=== PATIENT | female | born 1965 | race Caucasian/White ===

== ENCOUNTER 2022-12-27 00:21 | Emergency (ER) | payer MEDICAID, SELFPAY ==
[2022-12-27 00:30] VITALS: BP 165/81; PULSE 77; RESP 16; TEMP 37.1; O2SAT 97; BMI 22.2
--- NOTE | 2022-12-27 00:45 | ED_ITS ---
HPI - General Adult General: Chief complaint: General Medical Stated complaint: back pain, lower extremity swelling Time Seen by Provider: 12/27/22 00:23 Source: patient Mode of arrival: EMS Limitations: other (Patient is somewhat unwilling, seems excessively sedated) History of Present Illness: Patient presents to the ER today brought by EMS for evaluation treatment of complaints of acute on chronic back pain, abdominal pains, and bilateral lower extremity swelling. Fortunately, we have no previous history on this patient I am unaware of any previous medical history or active medications. While trying to talk to the patient, she is extremely slow to answer, very somnolent and does not provide much information. From what I gather, she reports all over back pain, vague abdominal pains, and bilateral lower extremity swelling. Patient is curled up in a position underneath her covers. After leaving patient's room, I saw a note indicating that the patient's family had called. She is homeless and they are not able to care for her. Review of Systems General: Reports: 10 or more systems reviewed and unremarkable except in HPI and below GI: Reports: abdominal pain Musc: Reports: back pain Skin/Breast: Reports: skin swelling (BLE) Physical Exam Narrative: EXAM NARRATIVE: patient smells strongly of urine Const: COMMON NORMALS: no acute distress and patient oriented x3 HENMT: COMMON NORMALS: normocephalic, atraumatic and hearing grossly normal bilaterally HEAD & SCALP: normocephalic and atraumatic Eye: COMMON NORMALS: Equal, round and reactive pupils present, EOMs intact bilaterally and conjunctivae normal CONJUNCTIVA: Yes conjunctivae normal PUPIL: Yes Equal, round and reactive pupils present Neck/C-Spine: COMMON NORMALS: full ROM and no JVD Lymph: LYMPHATIC: no lymphadenopathy noted Resp: COMMON NORMALS: normal respiratory effort, No retractions and No use of accessory muscles Cardio: COMMON NORMALS: no JVD and regular rate RATE: regular rate Neuro: COMMON NORMALS: patient oriented x3 Psych: COMMON NORMALS: mental status grossly normal, Normal thought process present, cooperative and normal affect APPEARANCE: Yes unkempt ATTITUDE: Yes Withdrawn affect present ACTIVITY/MOTOR BEHAVIOR: Yes Avoids eye contact (attititude/behavior) SPEECH: Yes minimal, Yes slow and Yes soft THOUGHT PROCESS: Normal thought process present Skin: COMMON NORMALS: no rashes or lesions noted and turgor normal NARRATIVE SKIN EXAM: BLE swelling with mild, 1+ pitting edema bilaterally. Minimal erythema noted to the lower extremities. GENERAL SKIN EXAM: no rashes or lesions noted and turgor normal Course Vital Signs: Vital signs: Vital Signs Temperature 98.7 F 12/27/22 00:30 Pulse Rate 77 12/27/22 00:30 Respiratory Rate 16 12/27/22 00:30 Blood Pressure 165/81 12/27/22 00:30 Pulse Oximetry 97 12/27/22 00:30 Oxygen Delivery Me thod 12/27/22 00:30 MDM - General Adult Medical Decision Making Patient presents to the emergency department today brought by EMS after family members called to have her brought in. There is a social situation here where in the family indicates they are not able to take care of her and had her brought here to be seen for evaluation of chronic abdominal pains, chronic back pain, and bilateral lower extremity edema. Given that we have no previous history on the patient and, patient is very difficult to gather information from, we did pursue an evaluation for the bilateral lower extremity edema. Chest x-ray was read as normal however, I did obtain a BNP which was found to be elevated over 1999. At that time, I did add on a baseline troponin which came back elevated at 127. Patient is EKG reviewed by Dr. Dumont. Patient's lab work is otherwise unremarkable but we were still waiting for urinalysis. I spoke w sophie Dumont who ordered a follow-up troponin. At this time, we are still waiting for completion of her medical evaluation here in the ER. Transition of care to Dr. Dumont at this point for continued interventions, treatment, and monitoring as needed. Differential Diagnosis CHF, lymphedema, venous insufficiency, electrolyte imbalance, kidney dysfunc tion, constipation, UTI, Tim Lab Data 12/27/22 01:16 12/27/22 01:16 Radiology Impressions Chest X-Ray 12/27/22 00:45 IMPRESSION: No acute abnormality demonstrated. Laboratory Results WBC 8.5 10^3/uL (4.0-10.0) 12/27/22 01:16 RBC 4.77 10^6/uL (4.1-5.3) 12/27/22 01:16 Hgb 13.5 g/dL (11.5-15.3) 12/27/22 01:16 Hct 41.2 % (37.0-47.0) 12/27/22 01:16 MCV 86.4 fl (81-99) 12/27/22 01:16 MCH 28.3 pg (28.0-34.0) 12/27/22 01:16 MCHC 32.8 g/dL (30.0-36.0) 12/27/22 01:16 RDW 13.0 % (12.1-15.1) 12/27/22 01:16 Plt Count 311 10^3/cmm (130-400) 12/27/22 01:16 MPV 10.5 fL (7.4-10.4) H 12/27/22 01:16 Neut % (Auto) 66.6 % 12/27/22 01:16 Lymph % (Auto) 18.3 % 12/27/22 01:16 [place] % (Auto) 12.7 % 12/27/22 01:16 Eos % (Auto) 1.5 % 12/27/22 01:16 Baso % (Auto) 0.5 % 12/27/22 01:16 Neut # (Auto) 5.63 10^3/uL (1.8-7.7) 12/27/22 01:16 Lymph # (Auto) 1.6 10^3/uL (0.8-4.8) 12/27/22 01:16 [place] # (Auto) 1.1 10^3/uL (0.2-0.9) H 12/27/22 01:16 Eos # (Auto) 0.1 10^3/uL (0.0-0.8) 12/27/22 01:16 Baso # (Auto) 0.0 10^3/uL (0.0-0.1) 12/27/22 01:16 Nucleated RBC % (auto) 0 % 12/27/22 01:16 Nucleated RBCs # 0.0 /100WBC 12/27/22 01:16 Sodium 139 mmol/L (136-145) 12/27/22 01:16 Potassium 3.3 mmol/L (3.5-5.1) L 12/27/22 01:16 Chloride 101 mmol/L (98-107) 12/27/22 01:16 Carbon Dioxide 27 mmol/L (22-29) 12/27/22 01:16 Anion Gap 14.3 (5-19) 12/27/22 01:16 BUN 8 mg/dL (6-20) 12/27/22 01:16 Creatinine 0.5 mg/dL (0.5-0.9) 12/27/22 01:16 GFR Calculation 126.7 mL/min (90-130) 12/27/22 01:16 Glucose 95 mg/dL (65-115) 12/27/22 01:16 Calculated Osmolality 286 mOsm/kg (285-295) 12/27/22 01:16 Calcium 9.1 mg/dL (8.5-10.5) 12/27/22 01:16 Total Bilirubin 0.9 mg/dL (0.15-1.2) 12/27/22 01:16 AST 19 U/L (0-32) 12/27/22 01:16 ALT 11 U/L (0-33) 12/27/22 01:16 Alkaline Phosphatase 82 U/L (35-105) 12/27/22 01:16 Troponin T Gen 5 ng/L 127 ng/L (0-10) H* 12/27/22 01:16 C-Reactive Protein 71.9 mg/L (0.0-4.9) H 12/27/22 01:16 NT-Pro-B Natriuret Pep 2171 pg/mL (0-125) H 12/27/22 01:16 Total Protein 7.1 g/dL (6.6-8.7) 12/27/22 01:16 Albumin 3.0 g/dL (3.5-5.2) L 12/27/22 01:16 Globulin 4.1 g/dL (1.3-4.6) 12/27/22 01:16 Lipase 42 U/L (13-60) 12/27/22 01:16 Ethyl Alcohol < 10 mg/dL (0-10) 12/27/22 01:16 Discharge Plan Discharge Condition: Stable Referrals: Rob Guajardo MD [Referring] - Coding Level of Care Code ED [employer]
--- NOTE | 2022-12-27 00:45 | XRR_ITS ---
PROCEDURE INFORMATION: Exam: XR Chest Exam date and time: 12/27/2022 1:06 AM Age: 57 years old Clinical indication: Other: Ble swelling; Additional info: Ble edema TECHNIQUE: Imaging protocol: Radiologic exam of the chest. Views: 1 view. COMPARISON: CR XR chest 1V [id number] 02/08/2017 4:44 PM FINDINGS: Lungs: No significant or acute findings. No consolidation. Pleural spaces: No significant costophrenic angle blunting. No pneumothorax. Heart/Mediastinum: Heart size within normal limits given the portable AP technique. Vasculature: Atherosclerotic tortuosity of the thoracic aorta. Bones/joints: No acute osseous abnormality. Other findings: Right posterior oblique rotation of the patient on the radiograph. XR/XR chest 1V [id number] IMPRESSION: No acute abnormality demonstrated.
--- NOTE | 2022-12-27 01:16 | ECG_ITS ---
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 Measurements Intervals [place] Rate: 84 P: 46 NV: 156 QRS: 27 QRSD: 90 T: 20 QT: 438 QTc: 520 Interpretive Statements SINUS RHYTHM WITH OCCASIONAL SUPRAVENTRICULAR PREMATURE COMPLEXES VOLTAGE CRITERIA FOR LVH [MEETS CRITERIA IN ONE OF: R(aVL), S(V1), R(V5), R(V5/V6)+S(V1)] POSSIBLE ANTERIOR MYOCARDIAL INFARCTION , OF INDETERMINATE AGE [30 ms Q WAVE IN V3/V4, OR R < 0.2 mV IN V4] Compared to ECG 02/08/2017 19:40:41 Left ventricular hypertrophy now present Sinus bradycardia no longer present Myocardial infarct finding still present Electronically Signed On 12-27-2022 11:28:45 CDT by Augustin Mondragon M.D. [email or web address]
[2022-12-27 01:25] LABS: Basophils % 0.5 %; Eosinophils # 0.1 10^3/uL (0.0-0.8); Eosinophils % 1.5 %; Hematocrit 41.2 % (37.0-47.0); Hemoglobin 13.5 g/dL (11.5-15.3); Lymphocytes # 1.6 10^3/uL (0.8-4.8); Lymphocytes % 18.3 %; Mean Corpuscular HGB Conc 32.8 g/dL (30.0-36.0); Mean Corpuscular Hemoglobin 28.3 pg (28.0-34.0); Mean Corpuscular Volume 86.4 fl (81-99); Mean Platelet Volume 10.5 fL (7.4-10.4); Monocytes # 1.1 10^3/uL (0.2-0.9); Monocytes % 12.7 %; Neutrophils # 5.63 10^3/uL (1.8-7.7); Neutrophils % 66.6 %; Nucleated Red Blood Cells % 0 %; Platelet Count 311 10^3/cmm (130-400); Red Blood Count 4.77 10^6/uL (4.1-5.3); White Blood Count 8.5 10^3/uL (4.0-10.0)
[2022-12-27 01:57] LABS: Alanine Aminotransferase 11 U/L (0-33); Alkaline Phosphatase 82 U/L (35-105); Anion Gap 14.3 (5-19); Aspartate Amino Transferase 19 U/L (0-32); Blood Urea Nitrogen 8 mg/dL (6-20); C Reactive Protein 71.9 mg/L (0.0-4.9); Calcium 9.1 mg/dL (8.5-10.5); Carbon Dioxide 27 mmol/L (22-29); Chloride 101 mmol/L (98-107); Globulin 4.1 g/dL (1.3-4.6); Glomerular Filtration Rate 126.7 mL/min (90-130); Glucose 95 mg/dL (65-115); Lipase 42 U/L (13-60); NT Pro B Type Natriuretic Pept 2171 pg/mL (0-125); Osmolality Calculated 286 mOsm/kg (285-295); Potassium 3.3 mmol/L (3.5-5.1); Sodium 139 mmol/L (136-145); Total Bilirubin 0.9 mg/dL (0.15-1.2); Total Protein 7.1 g/dL (6.6-8.7)
[2022-12-27 01:58] LABS: Alcohol Level < 10 mg/dL (0-10)
[2022-12-27 03:51] LABS: Troponin T (5th) Once 127 ng/L (0-10)
[2022-12-27] MEDS: amlodipine 10 mg Tablet PO (05:44)
[2022-12-27] MEDS: labetalol 5 mg/mL SDV 20mL 20 MG IVP (05:45)
[2022-12-27] MEDS: nitroglycerin 1 gm/inch oint Pkt 2 INCH TOPICAL (05:45)
[2022-12-27] MEDS: enalaprilat 1.25 mg/mL Inj IVP (05:45)
[2022-12-27 05:55] VITALS: BP 199/91; PULSE 67; RESP 28; O2SAT 96
[2022-12-27 06:24] LABS: Amphetamines Screen Urine Negative (Negative); Barbiturates Screen Urine Negative (Negative); Benzodiazepines Screen Urine Negative (Negative); Cocaine Screen Urine Negative (Negative); Opiate Screen Urine Negative (Negative); PCP Screen Urine Negative (Negative); THC Screen Urine Negative (Negative)
[2022-12-27 06:29] LABS: Troponin T (5th) Once 107 ng/L (0-10)
[2022-12-27 06:30] LABS: Add Urine Microscopic? YES; Bilirubin Urine Neg (Negative); Blood Urine 2+ (Negative); Glucose Urine UA Norm (Normal); Ketones Urine Negative (Negative); Leukocyte Esterase Urine Negative (Negative); Nitrate Urine Negative (Negative); Protein Urine Neg (Negative); Specific Gravity, Urine 1.015 (1.005-1.030); Urine Appearance Clear (CLEAR); Urine Color Yellow (Yellow); Urobilinogen Urine 4 mg/dL (Negative); pH Urine 6 (5-7)
[2022-12-27 06:31] LABS: Add Urine Culture? No; Bacteria Urine TRACE /hpf; Mucus Urine TRACE /hpf; RBC Urine 0-4 /hpf (0-2); WBC Urine 0-4 /hpf (0-5)
[2022-12-27 09:02] VITALS: BP 123/62; PULSE 67; RESP 22; O2SAT 94
== END 2022-12-27 12:48 | disposition home or self-care (01) ==
PROVIDERS: Physician Assistant; Emergency Provider Emergency Medicine
DX: M54.9 Dorsalgia, unspecified (principal); I10 Essential (primary) hypertension; R60.0 Localized edema
CPT/HCPCS: 71045; 80053; 80306; 80307; 81001; 83690; 83880; 84484; 85025; 86140; 93005; 96374; 96375; 99285; J3490

== ENCOUNTER 2022-12-30 13:04 | Emergency (ER) | payer MEDICAID, SELFPAY ==
--- NOTE | 2022-12-30 13:34 | W.ED.PSYCHS ---
HPI - Psych General: Chief Complaint: Psychiatric Symptoms Stated Complaint: MHE Time Seen by Provider: 12/30/22 13:33 History of Present Illness: Ms Alcaraz is a 57-year-old lady presenting to the emergency department for somewhat unclear region. Apparently she was seen on Tuesday and was seeking a place to stay. She does endorse a fall few days ago and left sided chest pain with cough over the past week. She is a poor historian though does appear to have knowledge of recent events. History is otherwise limited by patient. Patient denies suicidal or homicidal ideation. She denies other psychiatric symptoms. Upon further discussion with the patient she reports memory issues have been longstanding from prior strokes. Onset (ago): day(s) Relieving factors: none Exacerbating factors: other Associated psychiatric symptoms: none Review of Systems General: Reports: 10 or more systems reviewed and unremarkable except in HPI and below PFSH ED PFSH: Medical History (Updated 01/07/23 @ 00:01 by FABRICIO Arshad) Congestive heart failure (CHF) Physical Exam Const: COMMON NORMALS: alert GENERAL APPEARANCE: cooperative and well developed HENMT: COMMON NORMALS: normocephalic and atraumatic HEAD & SCALP: normocephalic and atraumatic Eye: COMMON NORMALS: conjunctivae normal CONJUNCTIVA: Yes conjunctivae normal SCLERA: sclerae normal Neck/C-Spine: COMMON NORMALS: supple GENERAL: Yes trachea midline Resp: EFFORT & INSPECTION: Yes able to speak in complete sentences AUSCULTATION: rhonchi and diminished lung sounds Cardio: COMMON NORMALS: regular rate and regular rhythm RATE: regular rate RHYTHM: regular rhythm GI: COMMON NORMALS: Soft to palpation PALPATION: Yes Soft to palpation and No Tenderness to palpation present (GI) Extremity: GENERAL: Yes normal exam except as noted and No edema Neuro: COMMON NORMALS: moves all extremities SENSORIUM/ORIENTATION: Yes alert and No Orientation impaired Psych: COMMON NORMALS: mental status grossly normal and Normal thought process present THOUGHT PROCESS: Normal thought process present Course Vital Signs: Vital signs: Vital Signs Pulse Rate 89 12/30/22 17:13 Respiratory Rate 17 12/30/22 17:13 Blood Pressure 151/81 12/30/22 17:13 Pulse Oximetry 94 12/30/22 17:13 MDM - Psych Medical Decision Making 57-year-old lady presenting to the ER for psychiatric evaluation. Exam as above. Labs with no significant hematologic abnormality. Metabolic panel with mild dehydration. No UTI. Toxic ingestions and UDS are negative. Chest x-ray with no lobar consolidation or pneumothorax. CT head demonstrates prior strokes and moderate small vessel changes. Patient adamantly denies suicidal or homicidal ideation. On reassessment she feels improved. Most likely etiology of patient's symptoms is multifactorial including persistent symptoms from past stroke and COPD exacerbation which can be treated in the outpatient setting. The results of ED evaluation were discussed with the patient including prescriptions and/or symptomatic cares (if applicable) including appropriate and responsible use, followup plan, and return precautions. The patient verbalized understanding and felt safe for discharge. Medical Records I reviewed the patient's medical records. Lab Data I reviewed the patient's lab results. 12/30/22 14:12 12/30/22 14:12 Radiology Impressions Chest X-Ray 12/30/22 13:55 IMPRESSION: 1. Normal chest. Head CT 12/30/22 13:55 IMPRESSION: 1. No evidence of intracranial hemorrhage or mass effect. 2. Moderate small vessel changes with moderate parenchymal volume loss. 3. Chronic lacunar infarcts in the bilateral basal ganglia and alan. 4. Chronic infarcts in the bilateral cerebellum. 5. Vascular calcification. 6. Chronic infarct in the LEFT parietal lobe near the vertex with encephalomalacia. 7. No acute intracranial findings. Laboratory Results WBC 6.6 10^3/uL (4.0-10.0) 12/30/22 14:12 RBC 5.14 10^6/uL (4.1-5.3) 12/30/22 14:12 Hgb 14.4 g/dL (11.5-15.3) 12/30/22 14:12 Hct 45.4 % (37.0-47.0) 12/30/22 14:12 MCV 88.3 fl (81-99) 12/30/22 14:12 MCH 28.0 pg (28.0-34.0) 12/30/22 14:12 MCHC 31.7 g/dL (30.0-36.0) 12/30/22 14:12 RDW 12.9 % (12.1-15.1) 12/30/22 14:12 Plt Count 352 10^3/cmm (130-400) 12/30/22 14:12 MPV 10.2 fL (7.4-10.4) 12/30/22 14:12 Neut % (Auto) 71.7 % 12/30/22 14:12 Lymph % (Auto) 16.6 % 12/30/22 14:12 [place] % (Auto) 9.2 % 12/30/22 14:12 Eos % (Auto) 1.7 % 12/30/22 14:12 Baso % (Auto) 0.6 % 12/30/22 14:12 Neut # (Auto) 4.75 10^3/uL (1.8-7.7) 12/30/22 14:12 Lymph # (Auto) 1.1 10^3/uL (0.8-4.8) 12/30/22 14:12 [place] # (Auto) 0.6 10^3/uL (0.2-0.9) 12/30/22 14:12 Eos # (Auto) 0.1 10^3/uL (0.0-0.8) 12/30/22 14:12 Baso # (Auto) 0.0 10^3/uL (0.0-0.1) 12/30/22 14:12 Nucleated RBC % (auto) 0 % 12/30/22 14:12 Nucleated RBCs # 0.0 /100WBC 12/30/22 14:12 Sodium 132 mmol/L (136-145) L 12/30/22 14:12 Potassium 3.9 mmol/L (3.5-5.1) 12/30/22 14:12 Chloride 94 mmol/L (98-107) L 12/30/22 14:12 Carbon Dioxide 32 mmol/L (22-29) H 12/30/22 14:12 Anion Gap 9.9 (5-19) 12/30/22 14:12 BUN 8 mg/dL (6-20) 12/30/22 14:12 Creatinine 0.6 mg/dL (0.5-0.9) 12/30/22 14:12 GFR Calculation 102.7 mL/min (90-130) 12/30/22 14:12 Glucose 89 mg/dL (65-115) 12/30/22 14:12 Calculated Osmolality 272 mOsm/kg (285-295) L 12/30/22 14:12 Calcium 9.2 mg/dL (8.5-10.5) 12/30/22 14:12 Total Bilirubin 0.5 mg/dL (0.15-1.2) 12/30/22 14:12 AST 21 U/L (0-32) 12/30/22 14:12 ALT 13 U/L (0-33) 12/30/22 14:12 Alkaline Phosphatase 95 U/L (35-105) 12/30/22 14:12 Total Protein 7.7 g/dL (6.6-8.7) 12/30/22 14:12 Albumin 3.4 g/dL (3.5-5.2) L 12/30/22 14:12 Globulin 4.3 g/dL (1.3-4.6) 12/30/22 14:12 TSH 2.98 uIU/mL (0.27-4.20) 12/30/22 14:12 Urine Color Yellow (Yellow) 12/30/22 13:30 Urine Appearance Clear (CLEAR) 12/30/22 13:30 Urine pH 8 (5-7) H 12/30/22 13:30 Ur Specific [place] 1.005 (1.005-1.030) 12/30/22 13:30 Urine Protein Neg (Negative) 12/30/22 13:30 Urine Glucose (UA) Norm (Normal) 12/30/22 13:30 Urine Ketones Negative (Negative) 12/30/22 13:30 Urine Blood 2+ (Negative) H 12/30/22 13:30 Urine Nitrate Negative (Negative) 12/30/22 13:30 Urine Bilirubin Neg (Negative) 12/30/22 13:30 Prot Sulfosalicylic Acd Negative (Negative) 12/30/22 13:30 Urine Urobilinogen Neg mg/dL (Negative) 12/30/22 13:30 Ur Leukocyte Esterase Negative (Negative) 12/30/22 13:30 Urine RBC 0-4 /hpf (0-2) H 12/30/22 13:30 Urine WBC 0-4 /hpf (0-5) H 12/30/22 13:30 Ur Squamous Epith Cells 5-10 /hpf (0-5) H 12/30/22 13:30 Amorphous Sediment Not Reportable 12/30/22 13:30 Urine Bacteria Trace /hpf (NONE) 12/30/22 13:30 Urine Mucus Trace /hpf 12/30/22 13:30 Salicylates < 0.3 mg/dL (3-10) L 12/30/22 14:12 Urine Opiates Screen Negative ng/mL (Negative) 12/30/22 13:30 Acetaminophen < 5.0 ug/mL (10-30) L 12/30/22 14:12 Ur Barbiturates Screen Negative ng/mL (Negative) 12/30/22 13:30 Ur Phencyclidine Scrn Negative ng/mL (Negative) 12/30/22 13:30 Ur Amphetamines Screen Negative ng/mL (Negative) 12/30/22 13:30 U Benzodiazepines Scrn Negative ng/mL (Negative) 12/30/22 13:30 Urine Cocaine Screen Negative ng/mL (Negative) 12/30/22 13:30 U Marijuana (THC) Screen Negative ng/mL (Negative) 12/30/22 13:30 Ethyl Alcohol < 10 mg/dL (0-10) 12/30/22 14:12 Discharge Plan Discharge Patient Disposition: Home Clinical Impression: History of stroke, Acute exacerbation of chronic obstructive pulmonary disease Condition: Stable Prescriptions: New albuterol sulfate 90 mcg/actuation HFA aerosol inhaler 2 inh inhalation Q4H PRN (Reason: shortness of breath or wheezing) Qty: 8.5 0RF No Action furosemide [Lasix] 20 mg tablet 20 mg PO DAILY Qty: 30 0RF potassium chloride 20 mEq tablet extended release 20 meq PO DAILY Qty: 30 0RF lisinopril 2.5 mg tablet 2.5 mg PO DAILY Qty: 30 0RF Discharge Orders: Discharge ED (Routine); Ordered 12/30/22 Ordered By: Ahmet Bhatt Discharge Diet: Usual diet Discharge Activity: Resume usual activity Patient Instructions: COPD (Chronic Obstructive Pulmonary Disease) (ED) Activity Restrictions/Additional Instructions: Thank you for visiting the emergency department. You were seen and evaluated for chest discomfort associated with cough. The most likely cause of this is exacerbation of underlying lung disease. I will prescribe steroids and antibiotics. Please also use your albuterol metered-dose inhaler 2 puffs every 4 hours for 24 hours followed by 2 puffs every 6 hours for 24 hours followed by 2 puffs every 8 hours for 24 hours and then return to the normal schedule. Case management will continue to work on resources. Please follow-up with a primary care provider, establish with a primary care provider if you do not currently have one. Return to the emergency department for anything that you are concerned about and feel needs emergency department evaluation. Coding Level of Care Code ED [employer]
[2022-12-30 13:41] VITALS: BMI 26.6
--- NOTE | 2022-12-30 13:55 | XR_ITS ---
WS: [id number] Exam: XR chest 1V portable [id number] Date/Time of Exam: 12/30/2022 2:04 PM Reason For Exam: cough Comparison 12/27/2022. The lungs are clear and fully expanded. Normal cardiomediastinal silhouette. No pleural effusions. Re gional bony structures are intact. XR/XR chest 1V portable [id number] IMPRESSION: 1. Normal chest.
--- NOTE | 2022-12-30 13:55 | CT_ITS ---
WS: [id number] CT HEAD TECHNIQUE: Noncontrast CT of the head obtained from the skullbase to the vertex. CLINICAL INFORMATION: ams COMPARISON: None. DLP: 984.[address] scans at [facility] use at least one of these dose optimization techniques: automated e xposure control; mA and/or kV adjustment per patient size (includes targeted exams where dose is matc hed to clinical indication); or iterative reconstruction. FINDINGS: No evidence of intracranial hemorrhage or mass effect. Ventricular system and basal cisterns are yates nt. Moderate to advanced small vessel changes with moderate parenchymal volume loss. No extra-axial f luid collections. No evidence of mass or mass effect. Chronic lacunar infarcts in the bilateral basal ganglia and LEFT internal capsule. Chronic lacunar i nfarct in the dorsal alan. Vascular calcification. Paranasal sinuses and mastoid air cells well aerat ed. Chronic infarct in the LEFT parietal lobe at the vertex with encephalomalacia. CT/CT head wo con* [id number] IMPRESSION: 1. No evidence of intracranial hemorrhage or mass effect. 2. Moderate small vessel changes with moderate parenchymal volume loss. 3. Chronic lacunar infarcts in the bilateral basal ganglia and alan. 4. Chronic infarcts in the bilateral cerebellum. 5. Vascular calcification. 6. Chronic infarct in the LEFT parietal lobe near the vertex with encephalomal acia. 7. No acute intracranial findings.
[2022-12-30 14:19] LABS: Amphetamines Screen Urine Negative (Negative); Barbiturates Screen Urine Negative (Negative); Benzodiazepines Screen Urine Negative (Negative); Cocaine Screen Urine Negative (Negative); Opiate Screen Urine Negative (Negative); PCP Screen Urine Negative (Negative); THC Screen Urine Negative (Negative)
[2022-12-30 14:22] LABS: Basophils % 0.6 %; Eosinophils # 0.1 10^3/uL (0.0-0.8); Eosinophils % 1.7 %; Hematocrit 45.4 % (37.0-47.0); Hemoglobin 14.4 g/dL (11.5-15.3); Lymphocytes # 1.1 10^3/uL (0.8-4.8); Lymphocytes % 16.6 %; Mean Corpuscular HGB Conc 31.7 g/dL (30.0-36.0); Mean Corpuscular Volume 88.3 fl (81-99); Mean Platelet Volume 10.2 fL (7.4-10.4); Monocytes # 0.6 10^3/uL (0.2-0.9); Monocytes % 9.2 %; Neutrophils # 4.75 10^3/uL (1.8-7.7); Neutrophils % 71.7 %; Nucleated Red Blood Cells % 0 %; Platelet Count 352 10^3/cmm (130-400); Red Blood Count 5.14 10^6/uL (4.1-5.3); Red Cell Distribution Width 12.9 % (12.1-15.1); White Blood Count 6.6 10^3/uL (4.0-10.0)
[2022-12-30 14:30] LABS: Urine Appearance Clear (CLEAR); Urine Color Yellow (Yellow); pH Urine 8 (5-7)
[2022-12-30 14:31] LABS: Specific Gravity, Urine 1.005 (1.005-1.030)
[2022-12-30 14:32] LABS: Add Urine Microscopic? YES; Bilirubin Urine Neg (Negative); Blood Urine 2+ (Negative); Glucose Urine UA Norm (Normal); Ketones Urine Negative (Negative); Leukocyte Esterase Urine Negative (Negative); Nitrate Urine Negative (Negative); Protein Urine Neg (Negative); Sulfosalicylic Acid Urine Negative (Negative); Urobilinogen Urine Neg (Negative)
[2022-12-30 14:33] LABS: Add Urine Culture? No; Bacteria Urine TRACE /hpf; Mucus Urine TRACE /hpf; RBC Urine 0-4 /hpf (0-2); WBC Urine 0-4 /hpf (0-5)
[2022-12-30 14:54] LABS: Alanine Aminotransferase 13 U/L (0-33); Albumin Level 3.4 g/dL (3.5-5.2); Alkaline Phosphatase 95 U/L (35-105); Anion Gap 9.9 (5-19); Aspartate Amino Transferase 21 U/L (0-32); Blood Urea Nitrogen 8 mg/dL (6-20); Calcium 9.2 mg/dL (8.5-10.5); Carbon Dioxide 32 mmol/L (22-29); Chloride 94 mmol/L (98-107); Globulin 4.3 g/dL (1.3-4.6); Glomerular Filtration Rate 102.7 mL/min (90-130); Glucose 89 mg/dL (65-115); Osmolality Calculated 272 mOsm/kg (285-295); Potassium 3.9 mmol/L (3.5-5.1); Sodium 132 mmol/L (136-145); Thyroid Stimulating Hormone 2.98 uIU/mL (0.27-4.20); Total Bilirubin 0.5 mg/dL (0.15-1.2); Total Protein 7.7 g/dL (6.6-8.7)
[2022-12-30 14:55] LABS: Acetaminophen < 5.0 ug/mL (10-30); Alcohol Level < 10 mg/dL (0-10); Salicylate < 0.3 mg/dL (3-10)
[2022-12-30 17:13] VITALS: BP 151/81; PULSE 89; RESP 17; O2SAT 94
== END 2022-12-30 17:16 | disposition home or self-care (01) ==
PROVIDERS: Emergency Provider Emergency Medicine
DX: J44.1 Chronic obstructive pulmonary disease with (acute) exacerbation (principal); Z86.73 Personal history of transient ischemic attack (TIA), and cerebral infarction without residual deficits; I50.9 Heart failure, unspecified
CPT/HCPCS: 36415; 70450; 71045; 80053; 80306; 80307; 81001; 84443; 85025; 99285

== ENCOUNTER 2025-03-04 17:46 | Inpatient (IN) | payer MEDICAID, SELFPAY ==
[2025-03-04] VITALS (20 sets, daily range): BP systolic 80–149; BP diastolic 41–93; PULSE 81–135; RESP 10–20; O2SAT 94–100
--- NOTE | 2025-03-04 17:53 | XRR_ITS ---
PROCEDURE INFORMATION: Exam: XR Chest Exam date and time: 03/04/2025 6:06 PM Age: 59 years old Clinical indication: Pain; Chest pressure; Additional info: Chest pain TECHNIQUE: Imaging protocol: Radiologic exam of the chest. Views: 1 view. COMPARISON: CR XR chest 1V portable [id number] 12/30/2022 2:07 PM FINDINGS: Lungs: Unremarkable. No consolidation. Pleural spaces: Unremarkable. No pleural effusion. No pneumothorax. Heart/Mediastinum: Unremarkable. No cardiomegaly. Bones/joints: Unremarkable. XR/XR chest 1V portable [id number] IMPRESSION: No acute findings.
--- NOTE | 2025-03-04 17:59 | W.ED.GENADLT ---
Documented by User: Ramirez Abarca DO 03/05/25 06:41 HPI - General Adult General: Chief complaint: Arrhythmia/Palpitations Stated complaint: Chest pain Time Seen by Provider: 03/04/25 17:52 History of Present Illness: 59-year-old female presents to the emergency room complaining of chest discomfort EMS found her to be in A-fib with RVR she is given 150 mg IV push of amiodarone and had improvement however shortly after arriving here began to have an accelerated heart rate again up to 130s and 40s. She is having some mild chest pain with this as well. She states she has not had any A-fib in the past no history of coronary artery disease. There is a diagnosis a few years ago of congestive heart failure. Associated symptoms: Reports chest pain and palpitations; Deny dyspnea or rash Related Data Previous Rx's ?Medication ?Instructions ?Recorded furosemide 20 mg tablet (Lasix) 20 mg PO DAILY #30 tabs 12/27/22 lisinopril 2.5 mg tablet 2.5 mg PO DAILY #30 tabs 12/27/22 potassium chloride 20 mEq 20 meq PO DAILY #30 tabs 12/27/22 tablet,extended release albuterol sulfate 90 mcg/actuation 2 inh inhalation Q4H PRN shortness 12/30/22 aerosol inhaler of breath or wheezing #8.5 grams Allergies Allergy/AdvReac Type Severity Reaction Status Date / Time Penicillins Allergy Unknown Verified 12/30/22 13:34 Review of Systems Const: Denies: fever(s) or chills Card: Reports: chest pain, palpitations and irregular heart rhythm Resp: Denies: dyspnea GI: Denies: abdominal pain : Denies: dysuria, urinary frequency or urinary urgency Musc: Denies: neck pain or back pain Skin/Breast: Denies: rash PFSH ED PFSH: Medical History (Updated 03/04/25 @ 21:13 by Eze Bose MD) Congestive heart failure (CHF) Physical Exam Const: GENERAL APPEARANCE: cooperative ORIENTATION/CONSCIOUSNESS: Yes awake, Yes oriented to person, Yes oriented to place and Yes oriented to time HENMT: COMMON NORMALS: normocephalic, atraumatic and hearing grossly normal bilaterally HEAD & SCALP: normocephalic and atraumatic Resp: COMMON NORMALS: normal respiratory effort, No retractions, No use of accessory muscles and clear to auscultation bilaterally AUSCULTATION: clear to auscultation bilaterally Cardio: COMMON NORMALS: No murmurs present (Cardio) RATE: tachycardic RHYTHM: abnormal rhythm irregularly irregular GI: COMMON NORMALS: Soft to palpation and No hepatosplenomegaly present AUSCULTATION: Yes normoactive bowel sounds PALPATION: Yes Soft to palpation, No Tenderness to palpation present (GI), No Guarding due to palpation present (GI) and Yes No hepatosplenomegaly present Extremity: COMMON NORMALS: normal to inspection, capillary refill normal, no clubbing, cyanosis or edema, no calf tenderness and no pedal edema Neuro: SENSORIUM/ORIENTATION: Yes oriented to person, Yes oriented to place and Yes oriented to time Skin: COMMON NORMALS: no rashes or lesions noted GENERAL SKIN EXAM: no rashes or lesions noted Course Vital Signs: Vital signs: Vital Signs Pulse Rate 107 H 03/05/25 05:00 Respiratory Rate 14 03/05/25 06:26 Blood Pressure 163/83 03/05/25 05:00 Pulse Oximetry 100 03/05/25 05:00 Oxygen Delivery Me thod Nasal Cannula 03/04/25 23:01 [facility] - General Adult Medical Decision Making Care signed out to Dr. Bose at change of shift. See final notes for diagnosis and disposition. Lab Data 03/05/25 03:07 03/05/25 03:07 Radiology Impressions Chest X-Ray 03/04/25 17:53 IMPRESSION: No acute findings. Head CT 03/04/25 20:00 IMPRESSION: No acute intracranial findings. Laboratory Results WBC 9.49 10^3/uL (3.29-11.43) 03/04/25 16:00 RBC 5.51 10^6/uL (3.85-5.65) 03/04/25 16:00 Hgb 14.70 g/dL (11.27-16.99) 03/04/25 16:00 Hct 44.9 % (36-47) 03/04/25 16:00 MCV 81.5 fl (85-98) L 03/04/25 16:00 MCH 26.7 pg (27-33) L 03/04/25 16:00 MCHC 32.7 g/dL (30-55) 03/04/25 16:00 RDW 13.9 % (12.1-15.1) 03/04/25 16:00 Plt Count 248 10^3/cmm (157-399) 03/04/25 16:00 MPV 11.7 fL (7.4-10.4) H 03/04/25 16:00 Neut % (Auto) 56.9 % 03/04/25 16:00 Lymph % (Auto) 31.2 % 03/04/25 16:00 Wise % (Auto) 10.3 % 03/04/25 16:00 Eos % (Auto) 0.9 % 03/04/25 16:00 Baso % (Auto) 0.5 % 03/04/25 16:00 Neut # (Auto) 5.39 10^3/uL (1.8-7.7) 03/04/25 16:00 Lymph # (Auto) 3.0 10^3/uL (0.8-4.8) 03/04/25 16:00 Wise # (Auto) 1.0 10^3/uL (0.2-0.9) H 03/04/25 16:00 Eos # (Auto) 0.1 10^3/uL (0.0-0.8) 03/04/25 16:00 Baso # (Auto) 0.1 10^3/uL (0.0-0.1) 03/04/25 16:00 Nucleated RBC % (auto) 0 % 03/04/25 16:00 Nucleated RBCs # 0.0 /100WBC 03/04/25 16:00 PT 18.20 SECONDS (12.1-14.9) H 03/04/25 19:31 INR 1.41 (0.8-1.2) H 03/04/25 19:31 APTT 37.1 SECONDS (23.9-36.7) H 03/04/25 19:31 Sodium 139 mmol/L (136-145) 03/04/25 16:00 Potassium 4.3 mmol/L (3.5-5.1) 03/04/25 16:00 Chloride 104 mmol/L (98-107) 03/04/25 16:00 Carbon Dioxide 19 mmol/L (22-29) L 03/04/25 16:00 Anion Gap 20.3 (5-19) H 03/04/25 16:00 BUN 12 mg/dL (8-23) 03/04/25 16:00 Creatinine 0.7 mg/dL (0.5-0.9) 03/04/25 16:00 GFR Calculation 85.4 mL/min (90-130) L 03/04/25 16:00 Glucose 106 mg/dL (65-115) 03/04/25 16:00 Calculated Osmolality 288 mOsm/kg (285-295) 03/04/25 16:00 Calcium 9.6 mg/dL (8.5-10.5) 03/04/25 16:00 Total Bilirubin 1.8 mg/dL (0.15-1.2) H 03/04/25 16:00 AST 33 U/L (0-32) H 03/04/25 16:00 ALT 25 U/L (0-33) 03/04/25 16:00 Alkaline Phosphatase 139 U/L (35-105) H 03/04/25 16:00 Troponin T Baseline 8 ng/L (0-10) 03/04/25 16:00 Troponin T 120 Minute 10.58 ng/L (0-10) H 03/04/25 19:31 Delta Troponin T 2.58 ABS# (0-10) 03/04/25 19:31 NT-Pro-B Natriuret Pep 1637 pg/mL (0-125) H 03/04/25 16:00 Total Protein 8.2 g/dL (6.6-8.7) 03/04/25 16:00 Albumin 4.0 g/dL (3.5-5.2) 03/04/25 16:00 Globulin 4.2 g/dL (1.3-4.6) 03/04/25 16:00 Urine Color [place] (Yellow) A 03/04/25 18:30 Urine Appearance Cloudy (CLEAR) A 03/04/25 18:30 Urine pH 5.5 (5-7) 03/04/25 18:30 Ur Specific [place] 1.020 (1.005-1.030) 03/04/25 18:30 Urine Protein 2+ (Negative) A 03/04/25 18:30 Urine Glucose (UA) Negative (Normal) 03/04/25 18:30 Urine Ketones Trace (Negative) 03/04/25 18:30 Urine Blood 3+ (Negative) A 03/04/25 18:30 Urine Nitrate Negative (Negative) 03/04/25 18:30 Urine Bilirubin 1+ (Negative) H 03/04/25 18:30 Urine Urobilinogen 1.0 mg/dL (Negative) 03/04/25 18:30 Ur Leukocyte Esterase 3+ (Negative) A 03/04/25 18:30 Urine RBC 51-100 /hpf (0-2) H 03/04/25 18:30 Urine WBC >100 /hpf (0-5) H 03/04/25 18:30 Ur Squamous Epith Cells 11-20 /hpf (0-5) H 03/04/25 18:30 Amorphous Sediment Not Reportable 03/04/25 18:30 Urine Bacteria 4+ /hpf (NONE) H 03/04/25 18:30 Hyaline Casts 6.61 /lpf 03/04/25 18:30 EKG Data EKG 1: Computer generated interpretation: Chest X-Ray 03/04/25 17:53 IMPRESSION: No acute findings. Head CT 03/04/25 20:00 IMPRESSION: No acute intracranial findings. EKG 2: Computer generated interpretation: Chest X-Ray 03/04/25 17:53 IMPRESSION: No acute findings. Head CT 03/04/25 20:00 IMPRESSION: No acute intracranial findings. Discharge Plan Discharge Patient Disposition: Admitted As Inpatient Admit Provider: Bri Gunn Clinical Impression: Atrial fibrillation with RVR, UTI (urinary tract infection) Condition: Stable Coding Level of Care Code ED Risk Assessment Consultant for Chg Fwd Documented by User: Eze Bose MD 03/04/25 21:23 HPI - General Adult General: Chief complaint: Arrhythmia/Palpitations Stated complaint: Chest pain Time Seen by Provider: 03/04/25 17:52 Related Data Previous Rx's ?Medication ?Instructions ?Recorded furosemide 20 mg tablet (Lasix) 20 mg PO DAILY #30 tabs 12/27/22 lisinopril 2.5 mg tablet 2.5 mg PO DAILY #30 tabs 12/27/22 potassium chloride 20 mEq 20 meq PO DAILY #30 tabs 12/27/22 tablet,extended release albuterol sulfate 90 mcg/actuation 2 inh inhalation Q4H PRN shortness 12/30/22 aerosol inhaler of breath or wheezing #8.5 grams Allergies Allergy/AdvReac Type Severity Reaction Status Date / Time Penicillins Allergy Unknown Verified 12/30/22 13:34 [facility] ED PFSH: Medical History (Updated 03/04/25 @ 21:13 by Eze Bose MD) Congestive heart failure (CHF) Course Vital Signs: Vital signs: Vital Signs Pulse Rate 107 H 03/05/25 05:00 Respiratory Rate 14 03/05/25 06:26 Blood Pressure 163/83 03/05/25 05:00 Pulse Oximetry 100 03/05/25 05:00 Oxygen Delivery Me thod Nasal Cannula 03/04/25 23:01 MDM - General Adult Medical Decision Making Care signed out to Dr. Bose at change of shift. See final notes for diagnosis and disposition. In summary, patient is a generally well-appearing 59-year-old female who came to the emergency department via EMS for chest pain. En route, EMS found her to have elevated heart rate and atrial fibrillation for which they gave her an amiodarone bolus. Chest pain was relieved with rate control. She was switched to Cardizem boluses while here in the emergency department. She received 2 L of normal saline in total. Troponin is not elevated. Urinalysis is not worrisome for infection. She exhibits some confusion and pulled out her IVs thus CT brain was performed. She was given ceftriaxone for suspected UTI and cultures were sent. She will be admitted to the hospitalist service for further observation and care and consideration for anticoagulation and rate control And further evaluation of the etiology of the atrial fibrillation Lab Data 03/05/25 03:07 03/05/25 03:07 Radiology Impressions Chest X-Ray 03/04/25 17:53 IMPRESSION: No acute findings. Head CT 03/04/25 20:00 IMPRESSION: No acute intracranial findings. Laboratory Results WBC 9.49 10^3/uL (3.29-11.43) 03/04/25 16:00 RBC 5.51 10^6/uL (3.85-5.65) 03/04/25 16:00 Hgb 14.70 g/dL (11.27-16.99) 03/04/25 16:00 Hct 44.9 % (36-47) 03/04/25 16:00 MCV 81.5 fl (85-98) L 03/04/25 16:00 MCH 26.7 pg (27-33) L 03/04/25 16:00 MCHC 32.7 g/dL (30-55) 03/04/25 16:00 RDW 13.9 % (12.1-15.1) 03/04/25 16:00 Plt Count 248 10^3/cmm (157-399) 03/04/25 16:00 MPV 11.7 fL (7.4-10.4) H 03/04/25 16:00 Neut % (Auto) 56.9 % 03/04/25 16:00 Lymph % (Auto) 31.2 % 03/04/25 16:00 Wise % (Auto) 10.3 % 03/04/25 16:00 Eos % (Auto) 0.9 % 03/04/25 16:00 Baso % (Auto) 0.5 % 03/04/25 16:00 Neut # (Auto) 5.39 10^3/uL (1.8-7.7) 03/04/25 16:00 Lymph # (Auto) 3.0 10^3/uL (0.8-4.8) 03/04/25 16:00 Wise # (Auto) 1.0 10^3/uL (0.2-0.9) H 03/04/25 16:00 Eos # (Auto) 0.1 10^3/uL (0.0-0.8) 03/04/25 16:00 Baso # (Auto) 0.1 10^3/uL (0.0-0.1) 03/04/25 16:00 Nucleated RBC % (auto) 0 % 03/04/25 16:00 Nucleated RBCs # 0.0 /100WBC 03/04/25 16:00 PT 18.20 SECONDS (12.1-14.9) H 03/04/25 19:31 INR 1.41 (0.8-1.2) H 03/04/25 19:31 APTT 37.1 SECONDS (23.9-36.7) H 03/04/25 19:31 Sodium 139 mmol/L (136-145) 03/04/25 16:00 Potassium 4.3 mmol/L (3.5-5.1) 03/04/25 16:00 Chloride 104 mmol/L (98-107) 03/04/25 16:00 Carbon Dioxide 19 mmol/L (22-29) L 03/04/25 16:00 Anion Gap 20.3 (5-19) H 03/04/25 16:00 BUN 12 mg/dL (8-23) 03/04/25 16:00 Creatinine 0.7 mg/dL (0.5-0.9) 03/04/25 16:00 GFR Calculation 85.4 mL/min (90-130) L 03/04/25 16:00 Glucose 106 mg/dL (65-115) 03/04/25 16:00 Calculated Osmolality 288 mOsm/kg (285-295) 03/04/25 16:00 Calcium 9.6 mg/dL (8.5-10.5) 03/04/25 16:00 Total Bilirubin 1.8 mg/dL (0.15-1.2) H 03/04/25 16:00 AST 33 U/L (0-32) H 03/04/25 16:00 ALT 25 U/L (0-33) 03/04/25 16:00 Alkaline Phosphatase 139 U/L (35-105) H 03/04/25 16:00 Troponin T Baseline 8 ng/L (0-10) 03/04/25 16:00 Troponin T 120 Minute 10.58 ng/L (0-10) H 03/04/25 19:31 Delta Troponin T 2.58 ABS# (0-10) 03/04/25 19:31 NT-Pro-B Natriuret Pep 1637 pg/mL (0-125) H 03/04/25 16:00 Total Protein 8.2 g/dL (6.6-8.7) 03/04/25 16:00 Albumin 4.0 g/dL (3.5-5.2) 03/04/25 16:00 Globulin 4.2 g/dL (1.3-4.6) 03/04/25 16:00 Urine Color [place] (Yellow) A 03/04/25 18:30 Urine Appearance Cloudy (CLEAR) A 03/04/25 18:30 Urine pH 5.5 (5-7) 03/04/25 18:30 Ur Specific [place] 1.020 (1.005-1.030) 03/04/25 18:30 Urine Protein 2+ (Negative) A 03/04/25 18:30 Urine Glucose (UA) Negative (Normal) 03/04/25 18:30 Urine Ketones Trace (Negative) 03/04/25 18: Urine Blood 3+ (Negative) A 03/04/25 18:30 Urine Nitrate Negative (Negative) 03/04/25 18:30 Urine Bilirubin 1+ (Negative) H 03/04/25 18: Urine Urobilinogen 1.0 mg/dL (Negative) 03/04/25 18:30 Ur Leukocyte Esterase 3+ (Negative) A 03/04/25 18:30 Urine RBC 51-100 /hpf (0-2) H 03/04/25 18:30 Urine WBC >100 /hpf (0-5) H 03/04/25 18:30 Ur Squamous Epith Cells 11-20 /hpf (0-5) H 03/04/25 18:30 Amorphous Sediment Not Reportable 03/04/25 18:30 Urine Bacteria 4+ /hpf (NONE) H 03/04/25 18:30 Hyaline Casts 6.61 /lpf 03/04/25 18:30 All radiology interpretation(s) finalized by discharge EKG Data EKG 1: Interpretation: Time?1800?atrial fibrillation with RVR, rate of 133, no ST segment elevation or depression, no T wave inversions, intervals within normal limits. QTc = 398. Computer generated interpretation: Chest X-Ray 03/04/25 17:53 IMPRESSION: No acute findings. Head CT 03/04/25 20:00 IMPRESSION: No acute intracranial findings. EKG 2: Interpretation: Time?2022?atrial fibrillation with RVR, rate of 118, no ST segment elevation or depression, no T wave inversions, QTc = 439 Computer generated interpretation: Chest X-Ray 03/04/25 17:53 IMPRESSION: No acute findings. Head CT 03/04/25 20:00 IMPRESSION: No acute intracranial findings. Discharge Plan Discharge Patient Disposition: Admitted As Inpatient Admit Provider: Velia,Patience C Clinical Impression: Atrial fibrillation with RVR, UTI (urinary tract infection) Condition: Stable Coding Level of Care Code ED Risk Assessment Consultant for Denise Verduzco
--- NOTE | 2025-03-04 18:00 | ECG_ITS ---
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 Measurements Intervals [place] Rate: 133 P: 0 [place]: 0 QRS: 33 QRSD: 76 T: 61 QT: 320 QTc: 476 Interpretive Statements ATRIAL FIBRILLATION WITH RAPID VENTRICULAR RESPONSE SEPTAL MYOCARDIAL INFARCTION , OF INDETERMINATE AGE [40+ ms Q WAVE IN V1/V2] Compared to ECG 12/27/2022 01:16:30 Sinus rhythm no longer present Left ventricular hypertrophy no longer present Myocardial infarct finding still present Electronically Signed On 03-05-2025 11:35:48 CDT by Augustin Mondragon M.D. [email or web address] [id number]
[2025-03-04] MEDS: aspirin 81 mg Chew Tablet 324 MG PO (18:19)
[2025-03-04] MEDS: acetaminophen 325 mg Tablet 650 MG PO (18:35)
[2025-03-04 18:53] LABS: Basophils # 0.1 10^3/uL (0.0-0.1); Basophils % 0.5 %; Eosinophils # 0.1 10^3/uL (0.0-0.8); Eosinophils % 0.9 %; Hematocrit 44.9 % (36-47); Lymphocytes % 31.2 %; Mean Corpuscular HGB Conc 32.7 g/dL (30-55); Mean Corpuscular Hemoglobin 26.7 pg (27-33); Mean Corpuscular Volume 81.5 fl (85-98); Mean Platelet Volume 11.7 fL (7.4-10.4); Monocytes % 10.3 %; Neutrophils # 5.39 10^3/uL (1.8-7.7); Neutrophils % 56.9 %; Nucleated Red Blood Cells % 0 %; Platelet Count 248 10^3/cmm (157-399); Red Blood Count 5.51 10^6/uL (3.85-5.65); Red Cell Distribution Width 13.9 % (12.1-15.1); White Blood Count 9.49 10^3/uL (3.29-11.43)
[2025-03-04 19:08] LABS: Troponin(5th) Baseline 8 ng/L (0-10)
[2025-03-04 19:10] LABS: Bilirubin Urine 1+ (Negative); Blood Urine 3+ (Negative); Glucose Urine UA Negative (Normal); Ketones Urine Trace (Negative); Leukocyte Esterase Urine 3+ (Negative); Nitrate Urine Negative (Negative); Protein Urine 2+ (Negative); Urine Appearance Cloudy (CLEAR); pH Urine 5.5 (5-7)
[2025-03-04 19:15] LABS: Add Urine Microscopic? YES; Bacteria Urine 4+ /hpf; Hyaline Casts Urine 6.61 /lpf; RBC Urine 51-100 /hpf (0-2); WBC Urine >100 /hpf (0-5)
[2025-03-04 19:17] LABS: Alanine Aminotransferase 25 U/L (0-33); Alkaline Phosphatase 139 U/L (35-105); Blood Urea Nitrogen 12 mg/dL (8-23); Calcium 9.6 mg/dL (8.5-10.5); Carbon Dioxide 19 mmol/L (22-29); Chloride 104 mmol/L (98-107); Creatinine Clr Calc Pharmacy 87.0756; Globulin 4.2 g/dL (1.3-4.6); Glomerular Filtration Rate 85.4 mL/min (90-130); Glucose 106 mg/dL (65-115); NT Pro B Type Natriuretic Pept 1637 pg/mL (0-125); Osmolality Calculated 288 mOsm/kg (285-295); Sodium 139 mmol/L (136-145); Total Bilirubin 1.8 mg/dL (0.15-1.2); Total Protein 8.2 g/dL (6.6-8.7)
[2025-03-04 19:21] LABS: Anion Gap 20.3 (5-19); Aspartate Amino Transferase 33 U/L (0-32); Potassium 4.3 mmol/L (3.5-5.1)
[2025-03-04 19:30] LABS: Urine Color Orange (Yellow)
[2025-03-04 19:31] LABS: UA Slide Review UA Slide Review Perf
[2025-03-04 19:32] LABS: Add Urine Culture? Yes
[2025-03-04 19:57] LABS: INR 1.41 (0.8-1.2)
[2025-03-04 19:59] LABS: Partial Thromboplastin Time 37.1 SECONDS (23.9-36.7)
--- NOTE | 2025-03-04 20:00 | CTR_ITS ---
PROCEDURE INFORMATION: Exam: CT Head Without Contrast Exam date and time: 03/04/2025 8:12 PM Age: 59 years old Clinical indication: Altered mental status/memory loss; Confusion or disorientation TECHNIQUE: Imaging protocol: Computed tomography of the head without contrast. Radiation optimization: All CT scans at this facility use at least one of these dose optimization techniques: automated exposure control; mA and/or kV adjustment per patient size (includes targeted exams where dose is matched to clinical indication); or iterative reconstruction. COMPARISON: CT head wo con* [id number] 12/30/2022 2:51 PM RADIATION DOSE METRICS: Total DLP (mGy-cm): 1065.54 FINDINGS: Brain: Heavy intracranial calcified atherosclerotic disease. Bilateral lacunar basilar infarcts, stable from prior comparisons. Diffuse cerebral atrophy. Stable cerebellar infarcts. Stable appearing pontine infarct. Stable encephalomalacia of the bilateral cerebral vertices. Stable appearing periventricular and subcortical white matter hypoattenuation. Cerebral ventricles: No ventriculomegaly. Paranasal sinuses: Visualized sinuses are unremarkable. No fluid levels. Mastoid air cells: Visualized mastoid air cells are well aerated. Bones: Ex vacuo dilation of the cerebral spinal fluid spaces. Soft tissues: Unremarkable. CT/CT head wo con* [id number] IMPRESSION: No acute intracranial findings.
[2025-03-04 20:02] LABS: Troponin 5 2HR 10.58 ng/L (0-10); Troponin 5 2HR Delta 2.58 ABS# (0-10)
[2025-03-04] MEDS: cefTRIAXone 2,000 mg SDV 2000 MG IVP (20:20)
[2025-03-04] MEDS: sodium chloride 0.9% 1,000 ML 999 ML IV ×2 (20:21→22:08)
[2025-03-04] MEDS: LORazepam 1 MG/0.5 ML injection IVP (20:21)
--- NOTE | 2025-03-04 20:23 | ECG_ITS ---
[employer] Test Date: 2025-03-04 Pat Name: Natalie Alcaraz Department: Room: Gender: Female Anchorer: : 1965 Requested By: Ramirez Trotter Order Number: [id number] Reading MD: AMADO GARCIA Measurements Intervals [place] Rate: 118 P: 0 [place]: 0 QRS: 52 QRSD: 86 T: 72 QT: 369 QTc: 518 Interpretive Statements ATRIAL FIBRILLATION WITH RAPID VENTRICULAR RESPONSE SEPTAL MYOCARDIAL INFARCTION , OF INDETERMINATE AGE [40+ ms Q WAVE IN V1/V2] Compared to ECG 03/04/2025 18:00:43 No significant changes Electronically Signed On 03-06-2025 23:05:57 CDT by AMADO GARCIA [email or web address]
[2025-03-04] MEDS: dilTIAZem 5 mg/mL SDV 5 mL IVP (22:13)
[2025-03-04 23:07] LABS: Troponin 5 6HR 8.92 ng/L (0-10); Troponin 5 6HR Delta 0.92 ng/L (0-12)
[2025-03-04 23:10] LABS: Lactic Sepsis W/Reflex 0.9 mmol/L (0.5-2.2)
--- NOTE | 2025-03-04 23:53 | ECG_ITS ---
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
[2025-03-05] VITALS (78 sets, daily range): BP systolic 84–163; BP diastolic 53–113; PULSE 54–153; RESP 13–26; TEMP 36.7–36.8; O2SAT 94–100
[2025-03-05] MEDS: sodium chloride 0.9% 1,000 ML 75 ML IV (02:36)
[2025-03-05 03:53] LABS: Basophils % 0.7 %; Eosinophils # 0.1 10^3/uL (0.0-0.8); Eosinophils % 2.9 %; Hematocrit 40.6 % (36-47); Lymphocytes # 1.7 10^3/uL (0.8-4.8); Lymphocytes % 38.9 %; Mean Corpuscular HGB Conc 30.3 g/dL (30-55); Mean Corpuscular Hemoglobin 26.2 pg (27-33); Mean Corpuscular Volume 86.4 fl (85-98); Mean Platelet Volume 11.6 fL (7.4-10.4); Monocytes # 0.6 10^3/uL (0.2-0.9); Monocytes % 13.8 %; Neutrophils # 1.92 10^3/uL (1.8-7.7); Neutrophils % 43.5 %; Nucleated Red Blood Cells % 0 %; Platelet Count 148 10^3/cmm (157-399); Red Cell Distribution Width 14.2 % (12.1-15.1); White Blood Count 4.42 10^3/uL (3.29-11.43)
[2025-03-05 04:27] LABS: Alanine Aminotransferase 16 U/L (0-33); Alkaline Phosphatase 103 U/L (35-105); Anion Gap 13.8 (5-19); Aspartate Amino Transferase 23 U/L (0-32); Blood Urea Nitrogen 12 mg/dL (8-23); Calcium 8.2 mg/dL (8.5-10.5); Carbon Dioxide 22 mmol/L (22-29); Chloride 110 mmol/L (98-107); Creatinine Clr Calc Pharmacy 87.0756; Globulin 3.4 g/dL (1.3-4.6); Glomerular Filtration Rate 85.4 mL/min (90-130); Glucose 89 mg/dL (65-115); Osmolality Calculated 293 mOsm/kg (285-295); Potassium 3.8 mmol/L (3.5-5.1); Sodium 142 mmol/L (136-145); Total Protein 6.4 g/dL (6.6-8.7)
[2025-03-05] MEDS: heparin 5,000 unit/mL INJ 1 mL 5000 UNIT SUBCUT (06:23)
[2025-03-05] MEDS: morphine 4 mg/mL SDV 1 mL 2 MG IVP ×2 (06:26→11:22)
[2025-03-05] MEDS: docusate sodium 100 mg Capsule PO ×2 (08:11→17:48)
[2025-03-05] MEDS: pantoprazole DR 40 mg Tablet PO (08:11)
--- NOTE | 2025-03-05 08:52 | PC.PHAR ---
[facility] is faxing current med list 03/05/25 8:52am
--- NOTE | 2025-03-05 09:11 | PC.PHAR ---
Addendum entered by Rosalee Maurer 03/05/25 09:30: [facility] states pt has been on leave of absence from facility for 2 days and they do not know if pt has been taking her current medications. They believe it is the reason she is admitted. Original Note: Pt is in [facility] Asael DIAZ [phone]
[2025-03-05] MEDS: azithromycin 250 mg Tablet 500 MG PO (11:20)
[2025-03-05] MEDS: metoprolol tartrate 25 mg Tablet 12.5 MG PO (11:21)
[2025-03-05] MEDS: methylPREDNISolone sod succ 40 mg/mL INJ IVP ×2 (11:21→23:51)
--- NOTE | 2025-03-05 11:29 | PM.HP ---
Providers/Chief Complaint Admitting Physician: Bri Gunn MD--- patient was admitted before 12 midnight Chief Complaint: Chest pain, atrial fibrillation with RVR History of Present Illness Natalie Alcaraz is a 59 year old female with medical history significant for atrial fibrillation patient is on Eliquis. When asked on admission patient related that this is the first time she ever came in with atrial fibrillation. Patient was brought into the emergency room because of confusion she related that she was very tired very sleepy and had to sleep for 2 days not getting out of bed got weak on that and that is when she told her family to bring her to the emergency room for evaluation. It was noted that the blood pressure was fairly okay but the heart rates was in the 130s. When the EMS got to the home they started her on amiodarone which quickly brought the heart rate back to 80s. Upon arriving to the emergency room the emergency room attending stopped the amiodarone and gave her 5 mg IV bolus of Cardizem and 1 L of fluid. She did okay for a bit and the stat going up again in the 120s patient was dry I gave a liter of fluid and another bolus of Cardizem patient stayed in A-fib but quite rate control for throughout the shift. She was she get into A-fib RVR then it drip may be necessary. Just as remained the patient was in new onset cardiology Dr. Braga was consulted and I spoke to Dr. Braga regarding this patient and he is going to be seeing the patient. I think patient is asked the patient is triggered by the underlining urinary tract infection at this time. Patient is on high dose of ceftriaxone 2 g once daily and had received 1 yesterday and 1 today to continue. Review of Systems Narrative: System review open 10 organ review significant for cardiovascular process with atrial fibrillation with RVR and also system with infection. Medications/Allergies Home Medications ?Medication ?Instructions ?Recorded ?Confirmed ?Last Taken ?Type lisinopril 2.5 mg tablet 2.5 mg PO DAILY #30 tabs 12/27/22 03/05/25 Unknown Rx albuterol sulfate 90 mcg/actuation 2 inh inhalation Q4H PRN shortness 12/30/22 03/05/25 Unknown Rx aerosol inhaler of breath or wheezing #8.5 grams acetaminophen 650 mg 650 mg PO Q8H PRN Pain 03/05/25 03/05/25 Unknown History tablet,extended release albuterol sulfate 1.25 mg/3 mL 1.25 mg inhalation QID PRN 03/05/25 03/05/25 Unknown History solution for nebulization Shortness Of Breath apixaban 5 mg tablet (Eliquis) 5 mg PO BID 03/05/25 03/05/25 Unknown History aspirin 81 mg chewable tablet 81 mg PO DAILY 03/05/25 03/05/25 Unknown History atorvastatin 80 mg tablet 80 mg PO DAILY 03/05/25 03/05/25 Unknown History bisacodyl 10 mg rectal suppository 10 mg OR DAILY PRN Constipation 03/05/25 03/05/25 Unknown History (Dulcolax (bisacodyl)) guaifenesin 100 mg/5 mL oral liquid 200 mg PO Q6H PRN cougn/congestion 03/05/25 03/05/25 Unknown History magnesium hydroxide 400 mg/5 mL 30 ml PO DAILY PRN Constipation 03/05/25 03/05/25 Unknown History oral suspension (Milk of Magnesia) memantine 5 mg tablet 5 mg PO DAILY 03/05/25 03/05/25 Unknown History metoprolol tartrate 25 mg tablet 25 mg PO BID 03/05/25 03/05/25 Unknown History nystatin 100,000 unit/gram topical See Rx Instructions .Route .COMPLEX 03/05/25 03/05/25 Unknown History powder (Nyamyc) oxybutynin chloride 5 mg tablet 5 mg PO BID 03/05/25 03/05/25 Unknown History pantoprazole 40 mg tablet,delayed 40 mg PO DAILY 03/05/25 03/05/25 Unknown History release sodium phosphates 19 gram-7 118 ml OR DAILY PRN Constipation 03/05/25 03/05/25 Unknown History gram/118 mL enema (Fleet Enema) tramadol 50 mg tablet 50 mg PO Q8H PRN Pain 03/05/25 03/05/25 Unknown History Allergies Allergy/AdvReac Type Severity Reaction Status Date / Time Penicillins Allergy Unknown Verified 12/30/22 13:34 PFSH Acute PFSH: Medical History (Updated 03/04/25 @ 21:13 by Eze Bose MD) Congestive heart failure (CHF) Vitals/I&O/Wt Last Vital Signs Temp 98.1 F 03/05/25 08:15 Pulse 132 H 03/05/25 11:18 Resp 18 03/05/25 11:18 BP 142/78 03/05/25 08:45 Pulse Ox 99 03/05/25 11:18 O2 Del Method Nasal Cannula 03/05/25 11:18 O2 Flow Rate 2 03/05/25 11:18 03/04/25 03/05/25 03/05/25 22:59 06:59 14:59 Intake Total 1046.106 / 5224.987 3866 / 1000 Output Total Balance 1046.106 / 1046.106 -10 / 2619.148 1984 / 1000 Weight last 48 hrs Weight 82 kg Weight 68.946 kg Physical Exam Narrative: Patient is doing fairly well and responded to treatment confusion is clearing since she was given Ativan for agitation earlier part of this morning. This affects in a way of sedation. Patient is able to respond and verbalizes when asked questions HEENT normocephalic/atraumatic neck neck is supple cardiovascular heart is regular lungs are pretty much clear abdomen soft nontender nondistended unremarkable extremities are intact no edema has good pulses neurology has no focality lab studies lab studies reviewed and noted. Data 03/05/25 03:07 03/05/25 03:07 Micro: Microbiology 03/04/25 18:30 Urine Culture - Preliminary Urine,Clean Catch Gram Negative Rods 03/04/25 22:44 Blood Culture - Preliminary Blood SPECIMEN COLLECTED 03/04/25 22:40 Blood Culture - Preliminary Blood SPECIMEN COLLECTED A&P Assessment and plan (1) Atrial fibrillation with RVR: Patient to continue Eliquis - Continue rate controlling medication such as metoprolol - Follow through with IV boluses because of patient dryness - Continue and treat underlying infection and this will help with the atrial fibrillation with RVR dissipates (2) UTI (urinary tract infection): Patient has severe urinary tract infection patient has severe urinary tract infection - Continue with ceftriaxone daily - Gentle hydration and monitor PDMP PDMP Reviewed: Last Reviewed 03/05/25 11:41 by Bri Gunn MD Attestations Medical Necessity Statement*: Patient has atrial fibrillation with RVR with severe urinary tract infection triggering RVR patient meets inpatient criteria to at least stay a minimum of 2 midnights for care and optimization of medical problem. Coding Level of Care Code 80340 Diagnoses Atrial fibrillation with RVR I48.91 UTI (urinary tract infection) N39.0 Time Spent (min) 60
--- NOTE | 2025-03-05 11:55 | P.CONIM_ITS ---
<Statement entered by Carolee Foster MD - 03/05/25 19:55> Patient was evaluated and cared for in conjunction with an advanced practice practitioner. I personally examined the patient and reviewed the chart and all pertinent data including imaging, telemetry, and laboratory results. I discussed the patient in detail with the advanced practice practitioner. Please see their note for complete H&P testing result and agreed upon plan of care for the patient. 59-year-old female past medical history significant for hypertension hyperlipidemia continues tobacco abuse COPD presented with chest pain shortness of breath noted to be in new onset of A-fib with RVR, she was also noted to have a UTI treated with amiodarone, the patient became bradycardic was given IV fluid and given p.o. metoprolol, she again noticed to have A-fib with rapid ventricular response which is the reason we have been asked to see the patient. GENERAL: Patient is alert, awake and oriented x3. HEART: Regular S1 and S2. No murmur, rub or gallop. LUNGS: Clear to auscultate bilaterally. CENTRAL NERVOUS SYSTEM: Grossly nonfocal. EXTREMITIES: Lower extremities with out edema bilaterally. Assessment and plan New onset of atrial fibrillation with rapid ventricular response Hypertension COPD UTI Agree with antibiotics Switch patient to IV Cardizem titrate to keep heart rate below 90 Echocardiogram to assess LV function Anticoagulation with heparin or Lovenox Based upon echocardiogram result would need further workup such as ischemia Providers/Reason For Consult 2 Consulting Physician/Specialty*: Dr. Foster Reason for Consult*: afib rvr Requesting Physician: Dr. Waggoner Attending Physician: Maryjane Waggoner MD History of Present Illness History of Present Illness Natalie Alcaraz is a 59 year old female with COPD, current smoker, who came into the ER yesterday for severe shortness of breath and chest pain. She states her chest pain was related to her breathing, and was worse with deep breaths. She does not have any chest pain at this time. She denies any significant cardiac history. She states she has never been diagnosed with afib. In the ER, she was found to be in a-fib with rvr with rates in the 130s. She was given an amioo bolus, and chest pain was relieved with rate control. According to report given to me, she developed bradycardia with the amiodarone and was switched to cardizem boluses IV. She also received 2 L of normal saline in total. UA was worrisome for infection and patient was given Rocephin for suspected UTI and cultures were sent off. Most reek sent EKG showed A-fib with a rate of 91 and prolonged QT interval at 540. Baseline QTc was 476. Troponins were normal with a baseline of 8 10/22/2009 0.58 and a 6-hour of 0.92. proBNP was elevated at 1637. I do not see where she has ever had an echo at this facility. This morning, she was placed on Metoprolol 12.5 BID. Overall she is well compensated. O2 sat is 99% on 2 L nasal cannula. She denies any palpitations or chest pain or pressure at this time. Heart rates are still uncontrolled and at rest are in the 130s but when she becomes active they go up into the 150s. Blood pressure is stable in the 140s/70s. Review of Systems 2 Narrative: Consitutional: denies fever, chills, body aches, or changes in appetite, denies abnormal weight loss Eyes: Denies changes in vision Card: Denies chest pain, palpitations, edema, syncope, shortness of breath, orthopnea, leg pain with exertion Resp: reports shortness of breath on exertion relieved with rest, denies hemoptysis, denies cough GI: denies abdominal pain, denies nausea or voimting, denies blood in stool : denies blood in urine, denies dysuria Musc: Denies extremity pain, denies limited range of motion or recent injury Skin: Denies rash, lesions, or wounds, denies changes to skin color Neuro: Denies nubmness in extremities, h/a, s/s of stroke Gurjit: Denies easy bruiding/bleeding All: Denies s/s of allergies Medications/Allergies Home Medications ?Medication ?Instructions ?Recorded ?Confirmed ?Last Taken ?Type lisinopril 2.5 mg tablet 2.5 mg PO DAILY #30 tabs 03/05/25 Unknown Rx albuterol sulfate 90 mcg/actuation 2 inh inhalation Q4 H PRN shortness 12/30/22 03/05/25 Unknown Rx aerosol inhaler of breath or wheezing #8.5 g florencio acetaminophen 650 mg 650 mg PO Q8H PRN Pain 03/0503/05/25 Unknown History tablet,extended release albuterol sulfate 1.25 mg/3 mL 1.25 mg inhalation QID PRN 03/05/25 03/05/25 Unknown History solution for nebulization Shortness Of Breath apixaban 5 mg tablet (Eliquis) 5 mg PO BID 03/05/25 Unknown History aspirin 81 mg chewable tablet 81 mg PO DAILY 03/05/25 03/05/25 Unknown History atorvastatin 80 mg tablet 80 mg PO DAILY 03/05/2512/25 Unknown History bisacodyl 10 mg rectal suppository 10 mg ID DAILY PRN Constipation 03/05/25 03/05/25 Unknown History (Dulcolax (bisacodyl)) guaifenesin 100 mg/5 mL oral liquid 200 mg PO Q6H PRN cougn/congestion 03/05/25 03/05/25 Unknown History magnesium hydroxide 400 mg/5 mL 30 ml PO DAILY PRN Con stipation 03/05/25 03/05/25 Unknown History oral suspension (Milk of Magnesia) memantine 5 mg tablet 5 mg PO DAILY 03/05/2503/05 Unknown History metoprolol tartrate 25 mg tablet 25 mg PO BID 03/05/25 03/05/25 Unknown History nystatin 100,000 unit/gram topical See Rx Instructions .Route .COMPLEX 03/05/25 03/05/25 Unknown History powder (Nyamyc) oxybutynin chloride 5 mg tablet 5 mg PO BID 03/05/25 0 03/05/25 Unknown History pantoprazole 40 mg tablet,delayed 40 mg PO DAILY 03/0503/05/25 Unknown History release sodium phosphates 19 gram-7 118 ml ID DAILY PRN Consti pation 03/05/25 03/05/25 Unknown History gram/118 mL enema (Fleet Enema) tramadol 50 mg tablet 50 mg PO Q8H PRN Pain 03/05/25 Unknown History Allergies Allergy/AdvReac Type Severity Reaction Status Date / Time Penicillins Allergy Unknown Verified 12/30/22 13:34 Current Medications Generic Name Dose Route Start Last Admin Trade Name Freq PRN Reason Stop Dose Admin Azithromycin 500 mg 03/05/25 11:00 03/05/25 11:20 Azithromycin 250 Mg Tablet PO 500 mg DAILY KALPANA Administration Protocol Docusate Sodium 100 mg 03/05/25 09:00 03/05/25 08:11 Docusate Sodium 100 Mg Capsule PO 100 mg BID KALPANA Administration Heparin Sodium (Porcine) 5,000 unit 03/05/25 06:00 03/05/25 06:23 Heparin 5,000 Unit/Ml Inj 1 Ml SUBCUT 5,000 unit Q12H KALPANA Administration Sodium Chloride 1,000 mls @ 75 mls/hr 03/05/25 01:45 03/05/25 02:36 Sodium Chloride 0.9% IV 75 mls/hr .[id number] KALPANA Administration Methylprednisolone Sodium Succinate 40 mg 03/05/25 11:00 03/05/25 11:21 Methylprednisolone Sod Succ 40 Mg/Ml Inj IVP 40 mg Q12H KALPANA Administration Metoprolol Tartrate 12.5 mg 03/05/25 11:00 03/05/25 11:21 Metoprolol Tartrate 25 Mg Tablet PO 12.5 mg BID@0900,2100 KALPANA Administration Morphine Sulfate 2 mg 03/05/25 01:41 03/05/25 11:22 Morphine 4 Mg/Ml Sdv 1 Ml IVP 2 mg Q4H PRN Administration SEVERE PAIN Pantoprazole Sodium 40 mg 03/05/25 09:00 03/05/25 08:[address] 40 Mg Tablet PO 40 mg DAILY KALPANA Administration PFSH Acute 2 PFSH: Medical History (Updated 03/05/25 @ 12:09 by Kassie Savage NP) Congestive heart failure (CHF) Vitals/I&O/Wt Last Vital Signs Temp 98.1 F 03/05/25 08:15 Pulse 132 H 03/05/25 11:18 Resp 18 03/05/25 11:18 BP 142/78 03/05/25 08:45 Pulse Ox 99 03/05/25 11:18 O2 Del Method Nasal Cannula 03/05/25 11:18 O2 Flow Rate 2 03/05/25 11:18 03/04/25 03/05/25 03/05/25 22:59 06:59 14:59 Intake Total 1046.106 / 9551.870 9389 / 1000 Output Total Balance 1046.106 / 1046.106 -10 / 8898.476 1455 / 1000 Weight last 48 hrs Weight 180 lb 12.465 oz Weight 152 lb Physical Exam 2 Narrative: General: No apparent distress, healthy appearing, well nourished HENMT: normoceophalic Neck: No carotid bruit bilaterally Muskuloskeletal: Full ROM Respiratory: Normal respiratory effort, expiratory wheezing throughout all lung henry, no use of accessory muscles Cardio: No JVD, regular rate, regular rhythm, S1 S2 normal, no murmurs, peripheral pulses 2+ radial palpated bilaterally Extremities: Full ROM, normal, normal capillary refill, no cyanosis or edema Neuro: Alert and oriented x4, no focal motor deficits Psych: Affect normal, denies suicidal ideation, mental status grossly normal Skin: No rashes or lesions noted, no wounds Data 03/05/25 03:07 03/05/25 03:07 Micro: Microbiology 03/04/25 18:30 Urine Culture - Preliminary Urine,Clean Catch Gram Negative Rods 03/04/25 22:44 Blood Culture - Preliminary Blood SPECIMEN COLLECTED 03/04/25 22:40 Blood Culture - Preliminary Blood SPECIMEN COLLECTED A&P Assessment and plan (1) Atrial fibrillation with RVR: (2) UTI (urinary tract infection): (3) Congestive heart failure (CHF): Plan At this time, patient's rates are still uncontrolled. Would agree with metoprolol 12.5 BID. Will add diltiazem drip and closely watch for any bradycardia/hypotension. Will need echocardiogram once patient's rates are controlled. New onset afib could be due to underlying lung disease. Depending on echo results, further recommendations to be made. Clinically, she appears euvolemic. Thank you, Dr. Waggoner, for allowing us to care for this very pleasant 59 year old female. PDMP PDMP Reviewed: Not Reviewed Consult Attestations 2 Medical Necessity Statement: Defer to primary Coding Level of Care Code Acute Code for g Fwd Diagnoses Atrial fibrillation with RVR I48.91 Urinary tract infection without hematuria, site unspecified N39.0 Urinary tract infection type: site unspecified Hematuria presence: without hematuria Other congestive heart failure I50.9 Heart failure type: other
[2025-03-05] MEDS: dilTIAZem 100 MG in sodium chloride 0.9% (add-van) 100 ML IV (12:16)
--- NOTE | 2025-03-05 12:29 | P.PN_ITS ---
Subjective 2 Subjective: seen this am in afib rvr and hypertensive requesting to eat States she was having chest pressure in the middle of her chest that is what mainly brought her to the hospital. Denies a cough however is an active smoker trying to quit. Does not use oxygen at home however requiring 2 L nasal cannula at this time. Lives in an assisted living facility, denies fever. Vitals/I&O/Wt Last Vital Signs Temp 98.1 F 03/05/25 08:15 Pulse 132 H 03/05/25 11:18 Resp 18 03/05/25 11:18 BP 142/78 03/05/25 08:45 Pulse Ox 99 03/05/25 11:18 O2 Del Method Nasal Cannula 03/05/25 11:18 O2 Flow Rate 2 03/05/25 11:18 03/04/25 03/05/25 03/05/25 22:59 06:59 14:59 Intake Total 1046.106 / 6110.217 3058 / 1725 Output Total Balance 1046.106 / 1046.106 -10 / 2835.581 5435 / 1725 Weight last 48 hrs Weight 82 kg Weight 68.946 kg Physical Exam 2 Narrative: Patient is doing fairly well and responded to treatment confusion is clearing since she was given Ativan for agitation earlier part of this morning. This affects in a way of sedation. Patient is able to respond and verbalizes when asked questions HEENT normocephalic/atraumatic neck neck is supple cardiovascular heart is regular lungs are pretty much clear abdomen soft nontender nondistended unremarkable extremities are intact no edema has good pulses neurology has no focality lab studies lab studies reviewed and noted. General: Alert oriented x3, sitting up in bed appearing comfortable requesting food. Hypertensive HEENT: Normocephalic, atraumatic, EOMI, breathing 2 L nasal cannula Cardio: Irregularly irregular, tachycardic normal S1-S2, Respiratory: Decreased bilateral air entry, diffuse rhonchi present throughout all lung henry GI: Abdomen soft, nontender, nondistended, bowel sounds + Extremities: No edema bilateral lower extremities Data 03/05/25 03:07 03/05/25 03:07 Micro: Microbiology 03/04/25 18:30 Urine Culture - Preliminary Urine,Clean Catch Gram Negative Rods 03/04/25 22:44 Blood Culture - Preliminary Blood SPECIMEN COLLECTED 03/04/25 22:40 Blood Culture - Preliminary Blood SPECIMEN COLLECTED A&P Assessment and plan (1) Atrial fibrillation with RVR: Patient to continue Eliquis - Continue rate controlling medication such as metoprolol - Follow through with IV boluses because of patient dryness - Continue and treat underlying infection and this will help with the atrial fibrillation with RVR dissipates (2) UTI (urinary tract infection): Patient has severe urinary tract infection patient has severe urinary tract infection - Continue with ceftriaxone daily - Gentle hydration and monitor Plan #Atrial fibrillation with RVR #UTI #COPD exacerbation #Chest pressure -There has been reported episodes of bradycardia overnight therefore amiodarone drip had to be discontinued. Diltiazem drip was planned to be started however not started secondary to bradycardia. Cardizem pushes were ordered. ? I will start on metoprolol tartrate 12.5 twice daily and monitor patient's response. ? I do believe patient is possibly having a COPD exacerbation which may have triggered atrial fibrillation. ? Her shortness of breath chest pressure may be related to tachycardia with rates up to 150. At this time denies any chest pain. ? Would likely require stress test once heart rate is controlled. ? Cardiology consulted at time of admission. Will await recommendations ? Will place on Solu-Medrol 40 IV twice daily ? Continue ceftriaxone 2 g daily to cover for UTI and COPD add azithromycin 500 daily ? Add flutter valve, incentive spirometer. ? Add DuoNeb every 6 hours scheduled. - Troponins negative. ? Await urine culture Full code DVT prophylaxis: Continue home Eliquis. PDMP PDMP Reviewed: Not Reviewed Attestations 2 Medical Necessity Statement*: Patient has atrial fibrillation with RVR with severe urinary tract infection triggering RVR patient meets inpatient criteria to at least stay a minimum of 2 midnights for care and optimization of medical problem. Diagnoses Atrial fibrillation with RVR I48.91 Urinary tract infection without hematuria, site unspecified N39.0 Hematuria presence: without hematuria Urinary tract infection type: site unspecified
[2025-03-05] MEDS: aspirin 81 mg Chew Tablet PO (17:48)
[2025-03-05] MEDS: metoprolol tartrate 25 mg Tablet PO (17:48)
[2025-03-05] MEDS: apixaban 5 mg Tablet PO (17:48)
[2025-03-05] MEDS: cefTRIAXone 2,000 mg SDV 2000 MG IVP (21:00)
[2025-03-06] VITALS (10 sets, daily range): BP systolic 121–148; BP diastolic 60–104; PULSE 81–121; RESP 15–25; TEMP 36.4–37.2; O2SAT 91–99
--- NOTE | 2025-03-06 00:25 | ECG_ITS ---
[facility] Test Date: 2025-03-06 Pat Name: Natalie Alcaraz Department: Room: 101 Gender: Female Deputy Director: : 1965 Requested By: Bri Mckeon Order Number: [id number] Reading MD: AMADO GARCIA Measurements Intervals [place] Rate: 77 P: 0 AK: 0 QRS: 24 QRSD: 86 T: 37 QT: 430 QTc: 489 Interpretive Statements ATRIAL FIBRILLATION SEPTAL MYOCARDIAL INFARCTION , PROBABLY OLD [40+ ms Q WAVE IN V1/V2] Compared to ECG 03/04/2025 23:52:02 Myocardial infarct finding now present T-wave abnormality no longer present Prolonged QT interval no longer present Electronically Signed On 03-06-2025 22:49:56 CDT by AMADO GARCIA [email or web address]
[2025-03-06] MEDS: morphine 4 mg/mL SDV 1 mL 2 MG IVP ×4 (00:39→22:53)
[2025-03-06 05:34] LABS: Basophils % 0.2 %; Hematocrit 38.8 % (36-47); Lymphocytes # 0.8 10^3/uL (0.8-4.8); Lymphocytes % 11.7 %; Mean Corpuscular HGB Conc 31.4 g/dL (30-55); Mean Corpuscular Hemoglobin 26.3 pg (27-33); Mean Corpuscular Volume 83.8 fl (85-98); Mean Platelet Volume 11.6 fL (7.4-10.4); Monocytes # 0.1 10^3/uL (0.2-0.9); Neutrophils # 5.58 10^3/uL (1.8-7.7); Neutrophils % 85.5 %; Nucleated Red Blood Cells % 0 %; Platelet Count 162 10^3/cmm (157-399); Red Blood Count 4.63 10^6/uL (3.85-5.65); Red Cell Distribution Width 14.2 % (12.1-15.1); White Blood Count 6.52 10^3/uL (3.29-11.43)
[2025-03-06 05:56] LABS: Alanine Aminotransferase 17 U/L (0-33); Albumin Level 3.4 g/dL (3.5-5.2); Alkaline Phosphatase 113 U/L (35-105); Aspartate Amino Transferase 20 U/L (0-32); Blood Urea Nitrogen 16 mg/dL (8-23); Carbon Dioxide 23 mmol/L (22-29); Chloride 105 mmol/L (98-107); Creatinine Clr Calc Pharmacy 82.3556; Globulin 3.9 g/dL (1.3-4.6); Glomerular Filtration Rate 73.2 mL/min (90-130); Glucose 155 mg/dL (65-115); Magnesium 1.8 mg/dL (1.7-2.3); Osmolality Calculated 288 mOsm/kg (285-295); Sodium 137 mmol/L (136-145); Total Bilirubin 0.9 mg/dL (0.15-1.2); Total Protein 7.3 g/dL (6.6-8.7)
--- NOTE | 2025-03-06 07:51 | USCV_ITS ---
Natalie Alcaraz Age: 59 Gender: F : 1965 Exam Date: 03/06/2025 18:36 Ordering Phys: Kassie Savage NP Technologist: JOESPH [place] [facility] [place]: SOB, hx Afib BP: 148 / 104 HR: 75 Rhythm: erratic rhythm with Atrial fibrillation Technical Quality: Adequate MEASUREMENTS (Male / Female) Normal Values 2D ECHO LV Diastolic Diameter PLAX 2.7 cm 4.2 - 5.9 / 3.9 - 5.3 cm IVS Diastolic Thickness 1.6 cm 0.6 - 1.0 / 0.6 - 0.9 cm IVS Systolic Thickness 1.8 cm LVPW Diastolic Thickness 1.6 cm 0.6 - 1.0 / 0.6 - 0.9 cm LVPW Systolic Thickness 1.4 cm LVOT Diameter 2.0 cm LV Ejection Fraction 2D Teich 55.1 % LV Ejection Fraction MOD 4C 63.1 % LV Ejection Fraction MOD 2C 66.4 % LV Ejection Fraction 2C AL 67.4 % LA Diameter 5.4 cm LA Sys Volume AL 178.6 cm cubed LA Sys Volume Index AL 90.5 cm cubed/m squared Aorta at Sinotubular Diameter 2.9 cm IVC Diameter 1.8 cm M-MODE LA Ao Ratio MM 2.2 AV Cusp Separation MM 1.1 cm DOPPLER AV Peak Velocity 275.0 cm/s LVOT Peak Velocity 133.0 cm/s AV Area Cont Eq vti 1.6 cm squared AV Area Cont Eq pk 1.5 cm squared MV Peak Velocity 267.0 cm/s MV Area PHT 2.9 cm squared Mitral E to A Ratio 254.5 TV Peak Velocity 293.0 cm/s TR Peak Velocity 303.0 cm/s TR Peak Gradient 36.7 mmHg TV Peak E Velocity 76.0 cm/s PV Peak Velocity 110.0 cm/s FINDINGS Left Ventricle Normal left ventricular size, systolic function and wall thickness, with no regional wall motion abnormalities. Left ventricular ejection fraction is estimated at 60 %. Grade II/IV diastolic dysfunction, moderately elevated filling pressures. Right Ventricle The right ventricle is normal in size and function. Right Atrium The right atrium is normal in size. Left Atrium Moderately increased left atrial size. Mitral Valve Moderately thickened mitral valve. Moderate mitral annular calcification. No mitral valve stenosis. Moderate mitral valve regurgitation. Aortic Valve Severe aortic valve calcification. Moderate aortic valve stenosis, mean gradient 12.1 mmHg, NADIR 1.6 cm squared. [id number] aortic valve regurgitation. Tricuspid Valve Thickened tricuspid valve. No tricuspid valve stenosis. Moderate tricuspid valve regurgitation. Pulmonic Valve Structurally normal pulmonic valve without significant stenosis. There is no pulmonic regurgitation. Pericardium Normal pericardium without effusion. Aorta Normal ascending aorta dimension. IVC The inferior vena cava appears normal. CONCLUSIONS Normal left ventricular size, systolic function and wall thickness, with no regional wall motion abnormalities. Left ventricular ejection fraction is estimated at 60 %. Grade II/IV diastolic dysfunction, moderately elevated filling pressures. Moderately increased left atrial size. Moderately thickened mitral valve. Moderate mitral annular calcification. No mitral valve stenosis. Moderate mitral valve regurgitation. Severe aortic valve calcification. Moderate aortic valve stenosis, mean gradient 12.1 mmHg, NADIR 1.6 cm squared. [id number] aortic valve regurgitation. Thickened tricuspid valve. No tricuspid valve stenosis. Moderate tricuspid valve regurgitation. There is no pericardial effusion. Right atrial pressure is around 10 mm of mercury. Carolee Foster MD (Electronically Signed) Final Date: 09 March 2025 15:18 S
[2025-03-06] MEDS: apixaban 5 mg Tablet PO ×2 (08:09→18:36)
[2025-03-06] MEDS: aspirin 81 mg Chew Tablet PO (08:09)
[2025-03-06] MEDS: atorvastatin 40 mg Tablet 80 MG PO (08:09)
[2025-03-06] MEDS: metoprolol tartrate 25 mg Tablet PO ×2 (08:10→18:36)
[2025-03-06] MEDS: pantoprazole DR 40 mg Tablet PO (08:10)
[2025-03-06] MEDS: azithromycin 250 mg Tablet 500 MG PO (08:10)
[2025-03-06] MEDS: docusate sodium 100 mg Capsule PO ×2 (08:10→18:36)
[2025-03-06] MEDS: methylPREDNISolone sod succ 40 mg/mL INJ IVP (11:39)
--- NOTE | 2025-03-06 12:09 | P.PN_ITS ---
Subjective 2 Subjective: seen today no acute events overnight states she is feeling better Vitals/I&O/Wt Last Vital Signs Temp 98.4 F 03/06/25 11:36 Pulse 121 H 03/06/25 11:36 Resp 23 H 03/06/25 11:36 BP 121/80 03/06/25 11:36 Pulse Ox 93 03/06/25 11:36 O2 Del Method Room Air 03/06/25 11:36 O2 Flow Rate 1 03/05/25 12:59 03/05/25 03/06/25 03/06/25 22:59 06:59 14:59 Intake Total 593.959 / 2324.459 360 / 360 Balance 593.959 / 2324.459 360 / 360 Weight last 48 hrs Weight 81.012 kg Weight 82 kg Weight 68.946 kg Physical Exam 2 Narrative: General: Alert oriented x3, sitting up in bed appearing comfortable requesting food. Hypertensive HEENT: Normocephalic, atraumatic, EOMI, breathing 2 L nasal cannula Cardio: HR normal, normal S1-S2, Respiratory: Decreased bilateral air entry, diffuse rhonchi present throughout all lung henry, improving GI: Abdomen soft, nontender, nondistended, bowel sounds + Extremities: No edema bilateral lower extremities Data 03/06/25 05:07 03/06/25 05:07 Micro: Microbiology 03/04/25 22:44 Blood Culture - Preliminary Blood NEGATIVE TO DATE 03/04/25 22:40 Blood Culture - Preliminary Blood NEGATIVE TO DATE 03/04/25 18:30 Urine Culture - Preliminary Urine,Clean Catch Gram Negative Rods A&P Assessment and plan (1) Atrial fibrillation with RVR: Patient to continue Eliquis - Continue rate controlling medication such as metoprolol - Follow through with IV boluses because of patient dryness - Continue and treat underlying infection and this will help with the atrial fibrillation with RVR dissipates (2) UTI (urinary tract infection): Patient has severe urinary tract infection patient has severe urinary tract infection - Continue with ceftriaxone daily - Gentle hydration and monitor (3) Acute exacerbation of chronic obstructive pulmonary disease: Plan #Atrial fibrillation with RVR #UTI #COPD exacerbation #Chest pressure -There has been reported episodes of bradycardia overnight therefore amiodarone drip had to be discontinued. Diltiazem drip was planned to be started however not started secondary to bradycardia. Cardizem pushes were ordered. ? I will start on metoprolol tartrate 12.5 twice daily and monitor patient's response. ? I do believe patient is possibly having a COPD exacerbation which may have triggered atrial fibrillation. ? Her shortness of breath chest pressure may be related to tachycardia with rates up to 150. At this time denies any chest pain. ? Would likely require stress test once heart rate is controlled. ? Cardiology consulted at time of admission. Will await recommendations ? Will place on Solu-Medrol 40 IV twice daily ? Continue ceftriaxone 2 g daily to cover for UTI and COPD add azithromycin 500 daily ? Add flutter valve, incentive spirometer. ? Add DuoNeb every 6 hours scheduled. - Troponins negative. ? Await urine culture Full code DVT prophylaxis: Continue home Eliquis. 03/06/2025 await urine culture continue steroids, abx continue cardizem 60 BID continue lopressor 25 bid continue flutter valve, incentive spirometer. continue DuoNeb every 6 hours scheduled. PDMP PDMP Reviewed: Not Reviewed Attestations 2 Medical Necessity Statement*: Patient has atrial fibrillation with RVR with severe urinary tract infection triggering RVR patient meets inpatient criteria to at least stay a minimum of 2 midnights for care and optimization of medical problem. Diagnoses Atrial fibrillation with RVR I48.91 Urinary tract infection without hematuria, site unspecified N39.0 Hematuria presence: without hematuria Urinary tract infection type: site unspecified Acute exacerbation of chronic obstructive pulmonary disease J44.1
--- NOTE | 2025-03-06 13:17 | P.PN_ITS ---
<Statement entered by Carolee Foster MD - 03/06/25 21:17> Patient was evaluated and cared for in conjunction with an advanced practice practitioner. I personally examined the patient and reviewed the chart and all pertinent data including imaging, telemetry, and laboratory results. I discussed the patient in detail with the advanced practice practitioner. Please see their note for complete H&P testing result and agreed upon plan of care for the patient. Subjective 2 Subjective: Patient is doing well today. Denies chest pain or shortness of breath. She is currently off the Cardizem drip due to she developed some slight bradycardia. Still in A-fib. Blood pressure stable at 127/81. Heart rates around the 80s. Oxygen saturation 96% on nasal cannula. Creatinine is stable at 0.8. Vitals/I&O/Wt Last Vital Signs Temp 98.4 F 03/06/25 11:36 Pulse 121 H 03/06/25 11:36 Resp 23 H 03/06/25 11:36 BP 121/80 03/06/25 11:36 Pulse Ox 93 03/06/25 11:36 O2 Del Method Room Air 03/06/25 11:36 O2 Flow Rate 1 03/05/25 12:59 03/05/25 03/06/25 03/06/25 22:59 06:59 14:59 Intake Total 593.959 / 2324.459 360 / 360 Balance 593.959 / 2324.459 360 / 360 Weight last 48 hrs Weight 178 lb 9.6 oz Weight 180 lb 12.465 oz Weight 152 lb Physical Exam 2 Narrative: General: No apparent distress, healthy appearing, well nourished HENMT: normoceophalic Neck: No carotid bruit bilaterally Muskuloskeletal: Full ROM Respiratory: Normal respiratory effort, expiratory wheezing throughout all lung henry, no use of accessory muscles Cardio: No JVD, irregularly irregular rate and rhythm, S1 S2 normal, no murmurs, peripheral pulses 2+ radial palpated bilaterally Extremities: Full ROM, normal, normal capillary refill, no cyanosis or edema Neuro: Alert and oriented x4, no focal motor deficits Psych: Affect normal, denies suicidal ideation, mental status grossly normal Skin: No rashes or lesions noted, no wounds Data 03/06/25 05:07 03/06/25 05:07 Micro: Microbiology 03/04/25 22:44 Blood Culture - Preliminary Blood NEGATIVE TO DATE 03/04/25 22:40 Blood Culture - Preliminary Blood NEGATIVE TO DATE 03/04/25 18:30 Urine Culture - Preliminary Urine,Clean Catch Gram Negative Rods A&P Assessment and plan (1) Atrial fibrillation with RVR: (2) UTI (urinary tract infection): (3) Congestive heart failure (CHF): Plan Patient's rate is much better controlled. She is off the Cardizem drip. Will transition her to p.o. Cardizem 60 mg twice daily continue metoprolol 25 mg twice daily. We will get an echo today now that rates are controlled. Further recommendations after this has been read. PDMP PDMP Reviewed: Not Reviewed Attestations 2 Medical Necessity Statement*: Deferred to primary Coding Level of Care Code Acute Code for [facility] Diagnoses Atrial fibrillation with RVR I48.91 Urinary tract infection without hematuria, site unspecified N39.0 Hematuria presence: without hematuria Urinary tract infection type: site unspecified Other congestive heart failure I50.9 Heart failure type: other
[2025-03-06] MEDS: dilTIAZem ER (12HR) 60 mg Capsule PO ×2 (13:56→18:36)
[2025-03-06] MEDS: ondansetron 2 mg/ML SDV 2 mL 4 MG IVP (13:56)
[2025-03-06] MEDS: cefTRIAXone 2,000 mg SDV 2000 MG IVP (21:04)
[2025-03-06] MEDS: sennosides 8.6 mg Tablet 17.2 MG PO (21:05)
[2025-03-07] VITALS (11 sets, daily range): BP systolic 125–171; BP diastolic 75–110; PULSE 52–99; RESP 14–20; TEMP 36.1–37; O2SAT 94–100
[2025-03-07] MEDS: MELATONIN 3 MG TABLET 6 MG PO ×2 (00:31→21:59)
[2025-03-07] MEDS: levalbuterol 1.25 mg/3 mL Neb INHALATION (00:38)
[2025-03-07 06:13] LABS: Basophils % 0.1 %; Hematocrit 37.1 % (36-47); Lymphocytes # 1.4 10^3/uL (0.8-4.8); Lymphocytes % 14.7 %; Mean Corpuscular HGB Conc 31.8 g/dL (30-55); Mean Corpuscular Hemoglobin 26.9 pg (27-33); Mean Corpuscular Volume 84.5 fl (85-98); Monocytes # 0.6 10^3/uL (0.2-0.9); Monocytes % 5.7 %; Neutrophils # 7.71 10^3/uL (1.8-7.7); Neutrophils % 79.1 %; Nucleated Red Blood Cells % 0 %; Platelet Count 171 10^3/cmm (157-399); Red Blood Count 4.39 10^6/uL (3.85-5.65); Red Cell Distribution Width 14.4 % (12.1-15.1); White Blood Count 9.75 10^3/uL (3.29-11.43)
[2025-03-07 06:32] LABS: Alanine Aminotransferase 13 U/L (0-33); Albumin Level 3.4 g/dL (3.5-5.2); Alkaline Phosphatase 95 U/L (35-105); Anion Gap 12.2 (5-19); Aspartate Amino Transferase 12 U/L (0-32); Blood Urea Nitrogen 15 mg/dL (8-23); Carbon Dioxide 27 mmol/L (22-29); Chloride 103 mmol/L (98-107); Creatinine Clr Calc Pharmacy 91.6532; Globulin 3.6 g/dL (1.3-4.6); Glomerular Filtration Rate 85.4 mL/min (90-130); Glucose 115 mg/dL (65-115); Magnesium 1.9 mg/dL (1.7-2.3); Osmolality Calculated 288 mOsm/kg (285-295); Potassium 4.2 mmol/L (3.5-5.1); Sodium 138 mmol/L (136-145); Total Bilirubin 0.6 mg/dL (0.15-1.2)
--- NOTE | 2025-03-07 07:37 | PC.NURSE ---
Patient hr was karey and had 3.53 sec cardiac pause. Strip was posted in patient chart and Dr Gunn was notified and made aware of situation.
[2025-03-07] MEDS: apixaban 5 mg Tablet PO (09:50)
[2025-03-07] MEDS: azithromycin 250 mg Tablet 500 MG PO (09:50)
[2025-03-07] MEDS: atorvastatin 40 mg Tablet 80 MG PO (09:50)
[2025-03-07] MEDS: pantoprazole DR 40 mg Tablet PO (09:51)
[2025-03-07] MEDS: docusate sodium 100 mg Capsule PO ×2 (09:51→18:54)
[2025-03-07] MEDS: aspirin 81 mg Chew Tablet PO (09:51)
--- NOTE | 2025-03-07 10:14 | PC.NURSE ---
Notified Dr. Waggoner that patient had decreased HR this am to a rate of 38-40. Order to hold cardizem & metoprolol until patient is seen by cardiology.
--- NOTE | 2025-03-07 12:03 | P.PN_ITS ---
Subjective 2 Subjective: having sinus pauses, one of them during wakefulness state pause upto 3.5 sec morning meds held today denies cp, sob back to room air Vitals/I&O/Wt Last Vital Signs Temp 97.0 F L 03/07/25 08:00 Pulse 68 03/07/25 08:39 Resp 16 03/07/25 08:39 BP 129/85 03/07/25 08:00 Pulse Ox 95 03/07/25 08:39 O2 Del Method Room Air 03/07/25 08:39 O2 Flow Rate 2 03/07/25 08:39 03/06/25 03/07/25 03/07/25 22:59 06:59 14:59 Intake Total 0 / 375.541 Output Total 325 / 325 Balance -325 / 50.541 Weight last 48 hrs Weight 77.428 kg Weight 81.012 kg Physical Exam 2 Narrative: General: Alert oriented x3, sitting up in bed appearing comfortable requesting food. Hypertensive HEENT: Normocephalic, atraumatic, EOMI, now on room air Cardio: HR normal, normal S1-S2, Respiratory: Decreased bilateral air entry, diffuse rhonchi present throughout all lung henry, improving GI: Abdomen soft, nontender, nondistended, bowel sounds + Extremities: No edema bilateral lower extremities Data 03/07/25 05:40 03/07/25 05:40 Micro: Microbiology 03/04/25 18:30 Urine Culture - Final Urine,Clean Catch Proteus mirabilis A&P Assessment and plan (1) Atrial fibrillation with RVR: Patient to continue Eliquis - Continue rate controlling medication such as metoprolol - Follow through with IV boluses because of patient dryness - Continue and treat underlying infection and this will help with the atrial fibrillation with RVR dissipates (2) UTI (urinary tract infection): Patient has severe urinary tract infection patient has severe urinary tract infection - Continue with ceftriaxone daily - Gentle hydration and monitor (3) Acute exacerbation of chronic obstructive pulmonary disease: (4) Sinus pause: (5) Bradycardia: Plan #Atrial fibrillation with RVR #UTI #COPD exacerbation #Chest pressure -There has been reported episodes of bradycardia overnight therefore amiodarone drip had to be discontinued. Diltiazem drip was planned to be started however not started secondary to bradycardia. Cardizem pushes were ordered. ? I will start on metoprolol tartrate 12.5 twice daily and monitor patient's response. ? I do believe patient is possibly having a COPD exacerbation which may have triggered atrial fibrillation. ? Her shortness of breath chest pressure may be related to tachycardia with rates up to 150. At this time denies any chest pain. ? Would likely require stress test once heart rate is controlled. ? Cardiology consulted at time of admission. Will await recommendations ? Will place on Solu-Medrol 40 IV twice daily ? Continue ceftriaxone 2 g daily to cover for UTI and COPD add azithromycin 500 daily ? Add flutter valve, incentive spirometer. ? Add DuoNeb every 6 hours scheduled. - Troponins negative. ? Await urine culture Full code DVT prophylaxis: Continue home Eliquis. 03/06/2025 await urine culture continue steroids, abx continue cardizem 60 BID continue lopressor 25 bid continue flutter valve, incentive spirometer. continue DuoNeb every 6 hours scheduled. 03/07/2025 held solumedrol due to mild confusion, sensorium now clear will order reduced dose for COPD, predisone 20 mg daily x 3 days total stop cardizem hold lopressor, will discuss with cardiology possibly pt will need stress test in AM urine culture pending pt now on room air, respiratory sanchez, doing better requires continued hospitalization for sinus pause and further telemetry monitoring and adjustment of medications PDMP PDMP Reviewed: Not Reviewed Attestations 2 Medical Necessity Statement*: requires continued hospitalization for sinus pause and further telemetry monitoring and adjustment of medications Diagnoses Atrial fibrillation with RVR I48.91 Urinary tract infection without hematuria, site unspecified N39.0 Hematuria presence: without hematuria Urinary tract infection type: site unspecified Acute exacerbation of chronic obstructive pulmonary disease J44.1 Sinus pause I45.5 Bradycardia R00.1
--- NOTE | 2025-03-07 13:28 | ECG_ITS ---
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
--- NOTE | 2025-03-07 14:29 | P.PN_ITS ---
<Statement entered by Carolee Foster MD - 03/08/25 22:34> Patient was evaluated and cared for in conjunction with an advanced practice practitioner. I personally examined the patient and reviewed the chart and all pertinent data including imaging, telemetry, and laboratory results. I discussed the patient in detail with the advanced practice practitioner. Please see their note for complete H&P testing result and agreed upon plan of care for the patient. Subjective 2 Subjective: Patient had a 3-1/2-second pause. She had a couple pauses but that was the greatest pause this morning while she was awake. Asymptomatic. Cardizem and metoprolol was held this morning due to this. Vitals/I&O/Wt Last Vital Signs Temp 97.3 F L 03/07/25 12:00 Pulse 79 03/07/25 12:00 Resp 16 03/07/25 12:00 BP 125/75 03/07/25 12:00 Pulse Ox 95 03/07/25 12:00 O2 Del Method Room Air 03/07/25 12:00 O2 Flow Rate 2 03/07/25 08:39 03/06/25 03/07/25 03/07/25 22:59 06:59 14:59 Intake Total 0 / 375.541 120 / 120 Output Total 325 / 325 Balance -325 / 50.541 120 / 120 Weight last 48 hrs Weight 170 lb 11.2 oz Weight 178 lb 9.6 oz Physical Exam 2 Narrative: General: No apparent distress, healthy appearing, well nourished HENMT: normoceophalic Neck: No carotid bruit bilaterally Muskuloskeletal: Full ROM Respiratory: Normal respiratory effort, expiratory wheezing throughout all lung henry, no use of accessory muscles Cardio: No JVD, irregularly irregular rate and rhythm, S1 S2 normal, no murmurs, peripheral pulses 2+ radial palpated bilaterally Extremities: Full ROM, normal, normal capillary refill, no cyanosis or edema Neuro: Alert and oriented x4, no focal motor deficits Psych: Affect normal, denies suicidal ideation, mental status grossly normal Skin: No rashes or lesions noted, no wounds Data 03/07/25 05:40 03/07/25 05:40 Micro: Microbiology 03/04/25 18:30 Urine Culture - Final Urine,Clean Catch Proteus mirabilis A&P Assessment and plan (1) Atrial fibrillation with RVR: (2) UTI (urinary tract infection): (3) Congestive heart failure (CHF): Plan Patient had a sinus pauses up to 3.5 seconds thus we will discontinue Cardizem. Will continue metoprolol 25 twice daily and hold if heart rate less than 60. Will read echo further recommendations to follow. Hold Eliquis at this time in case stress test is positive and patient needs LHC. Plan is to do lexiscan mibi in the morning to evaluate for possible underlying ishcemia. She will need event monitor in the future. PDMP PDMP Reviewed: Not Reviewed Attestations 2 Medical Necessity Statement*: Deferred to primary. Coding Level of Care Code Acute Code for [facility] Diagnoses Atrial fibrillation with RVR I48.91 Urinary tract infection without hematuria, site unspecified N39.0 Hematuria presence: without hematuria Urinary tract infection type: site unspecified Other congestive heart failure I50.9 Heart failure type: other
--- NOTE | 2025-03-07 14:40 | ECG_ITS ---
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
[2025-03-07] MEDS: morphine 4 mg/mL SDV 1 mL 2 MG IVP (15:20)
[2025-03-07] MEDS: ondansetron 2 mg/ML SDV 2 mL 4 MG IVP (15:20)
[2025-03-07] MEDS: metoprolol tartrate 25 mg Tablet PO (18:54)
[2025-03-07] MEDS: cefTRIAXone 2,000 mg SDV 2000 MG IVP (21:58)
[2025-03-07] MEDS: sennosides 8.6 mg Tablet 17.2 MG PO (21:59)
[2025-03-07] MEDS: HYDROcodone-acetaminophen 5-325 mg Tablet 1 TAB PO (22:04)
[2025-03-08] VITALS (9 sets, daily range): BP systolic 94–170; BP diastolic 52–100; PULSE 63–108; RESP 12–24; TEMP 36.6–36.9; O2SAT 94–97; BMI 27.6
[2025-03-08] MEDS: morphine 4 mg/mL SDV 1 mL 2 MG IVP (03:18)
[2025-03-08] MEDS: levalbuterol 1.25 mg/3 mL Neb INHALATION (06:06)
--- NOTE | 2025-03-08 06:11 | P.PN_ITS ---
Subjective 2 Subjective: seen today after stress test results pending Vitals/I&O/Wt Last Vital Signs Temp 98.4 F 03/08/25 04:12 Pulse 77 03/08/25 06:08 Resp 18 03/08/25 06:08 BP 170/86 03/08/25 04:12 Pulse Ox 97 03/08/25 06:08 O2 Del Method Room Air 03/08/25 06:08 O2 Flow Rate 2 03/07/25 08:39 03/07/25 03/07/25 03/08/25 14:59 22:59 06:59 Intake Total 120 / 120 Balance 120 / 120 Weight last 48 hrs Weight 77.428 kg Physical Exam 2 Narrative: General: Alert oriented x3, HEENT: Normocephalic, atraumatic, EOMI, now on room air Cardio: HR normal, normal S1-S2, Respiratory: Decreased bilateral air entry, diffuse rhonchi present throughout all lung henry, improving GI: Abdomen soft, nontender, nondistended, bowel sounds + Extremities: No edema bilateral lower extremities Data 03/08/25 06:33 03/08/25 06:33 A&P Assessment and plan (1) Atrial fibrillation with RVR: Patient to continue Eliquis - Continue rate controlling medication such as metoprolol - Follow through with IV boluses because of patient dryness - Continue and treat underlying infection and this will help with the atrial fibrillation with RVR dissipates (2) UTI (urinary tract infection): Patient has severe urinary tract infection patient has severe urinary tract infection - Continue with ceftriaxone daily - Gentle hydration and monitor (3) Acute exacerbation of chronic obstructive pulmonary disease: (4) Sinus pause: (5) Bradycardia: Plan #Atrial fibrillation with RVR #UTI #COPD exacerbation #Chest pressure -There has been reported episodes of bradycardia overnight therefore amiodarone drip had to be discontinued. Diltiazem drip was planned to be started however not started secondary to bradycardia. Cardizem pushes were ordered. ? I will start on metoprolol tartrate 12.5 twice daily and monitor patient's response. ? I do believe patient is possibly having a COPD exacerbation which may have triggered atrial fibrillation. ? Her shortness of breath chest pressure may be related to tachycardia with rates up to 150. At this time denies any chest pain. ? Would likely require stress test once heart rate is controlled. ? Cardiology consulted at time of admission. Will await recommendations ? Will place on Solu-Medrol 40 IV twice daily ? Continue ceftriaxone 2 g daily to cover for UTI and COPD add azithromycin 500 daily ? Add flutter valve, incentive spirometer. ? Add DuoNeb every 6 hours scheduled. - Troponins negative. ? Await urine culture Full code DVT prophylaxis: Continue home Eliquis. 03/06/2025 await urine culture continue steroids, abx continue cardizem 60 BID continue lopressor 25 bid continue flutter valve, incentive spirometer. continue DuoNeb every 6 hours scheduled. 03/07/2025 held solumedrol due to mild confusion, sensorium now clear will order reduced dose for COPD, predisone 20 mg daily x 3 days total stop cardizem hold lopressor, will discuss with cardiology possibly pt will need stress test in AM urine culture pending pt now on room air, respiratory sanchez, doing better requires continued hospitalization for sinus pause and further telemetry monitoring and adjustment of medications 03/08/2025 seen today returned from stress test cardio on board await recommendations depending on results, further mgmt to be decided hold eliquis till results of stress test incase of angiogram being planned updated RN urine culture shows proteus sensitive to ceftriaxone prednisone 20 x 3 days PDMP PDMP Reviewed: Not Reviewed Attestations 2 Medical Necessity Statement*: requires continued hospitalization for sinus pause and further telemetry monitoring and adjustment of medications Diagnoses Atrial fibrillation with RVR I48.91 Urinary tract infection without hematuria, site unspecified N39.0 Hematuria presence: without hematuria Urinary tract infection type: site unspecified Acute exacerbation of chronic obstructive pulmonary disease J44.1 Sinus pause I45.5 Bradycardia R00.1
[2025-03-08 06:54] LABS: Basophils % 0.7 %; Eosinophils # 0.1 10^3/uL (0.0-0.8); Eosinophils % 1.3 %; Hematocrit 37.7 % (36-47); Lymphocytes # 1.7 10^3/uL (0.8-4.8); Lymphocytes % 37.3 %; Mean Corpuscular HGB Conc 31.6 g/dL (30-55); Mean Corpuscular Hemoglobin 26.9 pg (27-33); Mean Corpuscular Volume 85.1 fl (85-98); Mean Platelet Volume 11.1 fL (7.4-10.4); Monocytes # 0.5 10^3/uL (0.2-0.9); Monocytes % 10.2 %; Neutrophils # 2.26 10^3/uL (1.8-7.7); Neutrophils % 50.1 %; Nucleated Red Blood Cells % 0 %; Platelet Count 153 10^3/cmm (157-399); Red Blood Count 4.43 10^6/uL (3.85-5.65); Red Cell Distribution Width 14.6 % (12.1-15.1); White Blood Count 4.51 10^3/uL (3.29-11.43)
[2025-03-08 07:16] LABS: Anion Gap 9.1 (5-19); Blood Urea Nitrogen 18 mg/dL (8-23); Calcium 8.5 mg/dL (8.5-10.5); Carbon Dioxide 32 mmol/L (22-29); Chloride 103 mmol/L (98-107); Creatinine Clr Calc Pharmacy 108.5318; Glucose 94 mg/dL (65-115); Osmolality Calculated 292 mOsm/kg (285-295); Potassium 4.1 mmol/L (3.5-5.1); Sodium 140 mmol/L (136-145)
[2025-03-08] MEDS: regadenoson 0.4 Mg/5 ml Syringe IVP (07:29)
[2025-03-08] MEDS: docusate sodium 100 mg Capsule PO (09:31)
[2025-03-08] MEDS: atorvastatin 40 mg Tablet 80 MG PO (09:31)
[2025-03-08] MEDS: pantoprazole DR 40 mg Tablet PO (09:31)
[2025-03-08] MEDS: azithromycin 250 mg Tablet 500 MG PO (09:31)
[2025-03-08] MEDS: aspirin 81 mg Chew Tablet PO (09:31)
[2025-03-08] MEDS: predniSONE 20 mg Tablet PO (09:33)
[2025-03-08] MEDS: metoprolol tartrate 25 mg Tablet PO (10:39)
--- NOTE | 2025-03-08 11:09 | ECG_ITS ---
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
[2025-03-08 11:21] LABS: Troponin(5th) Baseline 20 ng/L (0-10)
--- NOTE | 2025-03-08 13:27 | P.PN_ITS ---
<Statement entered by Carolee Foster MD - 03/08/25 22:26> Patient was evaluated and cared for in conjunction with an advanced practice practitioner. I personally examined the patient and reviewed the chart and all pertinent data including imaging, telemetry, and laboratory results. I discussed the patient in detail with the advanced practice practitioner. Please see their note for complete H&P testing result and agreed upon plan of care for the patient. Subjective 2 Subjective: Patient states this morning after stress test she developed what she states is lung pain . She states she has a sharp pain at the center of her chest. Her stress test showed small areas of persistent reduced tracer uptake in the apical anterior lateral region which shows moderate reversibility in the absence of wall motion shown abnormalities in prone images could be a tension artifact. Small area of decreased uptake in the basal inferior inferior lateral wall on stress images in the absence of wall abnormality in prone images could be a tension artifact. On my assessment patient's heart rate was going up to at least the 140s, she has a history of pauses. She did have some bradycardia last night while sleeping. Heart rate is still not controlled. Echo has not been read. Vitals/I&O/Wt Last Vital Signs Temp 97.8 F 03/08/25 11:46 Pulse 108 H 03/08/25 11:46 Resp 17 03/08/25 11:46 BP 94/78 03/08/25 11:46 Pulse Ox 96 03/08/25 11:46 O2 Del Method Room Air 03/08/25 11:46 O2 Flow Rate 2 03/07/25 08:39 Weight last 48 hrs Weight 176 lb 5 oz Weight 170 lb 11.2 oz Physical Exam 2 Narrative: General: No apparent distress, healthy appearing, well nourished HENMT: normoceophalic Neck: No carotid bruit bilaterally Muskuloskeletal: Full ROM Respiratory: Normal respiratory effort, expiratory wheezing throughout all lung henry, no use of accessory muscles Cardio: No JVD, irregularly irregular rate and rhythm, S1 S2 normal, no murmurs, peripheral pulses 2+ radial palpated bilaterally Extremities: Full ROM, normal, normal capillary refill, no cyanosis or edema Neuro: Alert and oriented x4, no focal motor deficits Psych: Affect normal, denies suicidal ideation, mental status grossly normal Skin: No rashes or lesions noted, no wounds Data 03/08/25 06:33 03/08/25 06:33 A&P Assessment and plan (1) Atrial fibrillation with RVR: (2) UTI (urinary tract infection): (3) Congestive heart failure (CHF): Plan At this time patient states she would like to leave. I recommended against this as her heart rate is not controlled with abnormal stress test and incident of chest pain. EKG showed A-fib with controlled rate. She refused and states she does not want any further treatment here. She does understand that she is at risk of heart attack stroke or even if she leaves and that her heart rate has pauses as well as is uncontrolled at times. She verbalized full understanding and would like to leave AGAINST MEDICAL ADVICE. She understands that her stress test was abnormal and she could have a heart attack. She verbalized full understanding. Discussed with Dr. Foster, who at that time agreed. Dr. Waggoner was notified. PDMP PDMP Reviewed: Not Reviewed Attestations 2 Medical Necessity Statement*: Deferred to primary. Coding Level of Care Code Acute Code for [facility] Diagnoses Atrial fibrillation with RVR I48.91 Urinary tract infection without hematuria, site unspecified N39.0 Hematuria presence: without hematuria Urinary tract infection type: site unspecified Other congestive heart failure I50.9 Heart failure type: other
[2025-03-08 13:38] LABS: Troponin 5 2HR 20.24 ng/L (0-10); Troponin 5 2HR Delta 0.24 ABS# (0-10)
--- NOTE | 2025-03-08 13:53 | ECG_ITS ---
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
--- NOTE | 2025-03-08 14:40 | NMCV_ITS ---
NM crystal perf SPECT r/s* [id number] Natalie Alcaraz Age: 59 Gender: F : 1965 Exam Date: 03/08/2025 06:46 Ordering Phys: Kassie Savage NP Technologist: CANDIDO Cardozo Exam Location: [facility] Indications: CP STRESS TEST Please see separate stress test report in [facility] for full findings IMAGE PROTOCOL Rest/Stress 1 Lexiscan Day Radiopharmaceutical Dose (mCi) Administration Site Administered by Rest: Tc-99m 10.8 IV CANDIDO Cardozo Sestamibi Stress:Tc-99m 32.4 IV Sestamibi Rest: 08-Mar-2025 60 Discovery 630 Stress: 08-Mar-2025 30 Discovery 630 0.4mg Lexiscan. Supine position only as patient stated they were unable to lay prone do to herniated disc in back. SPECT RESULTS Technical Quality: Good Raw Data Analysis: Normal Image Corrections: No attenuation or motion correction applied Summed Stress Score: 7 Summed Rest Score: 1 Summed Difference Score: 6 PERFUSION FINDINGS Small area of persistent reduced tracer uptake noted in apical anterolateral region which shows moderate reversibility in the absence of wall motion abnormality and prone images could be attenuation artifact Small area of decreased tracer uptake noted in basal inferior and inferolateral wall on the stress images in the absence of wall motion abnormality and prone images could be attenuation artifact clinical correlation advised. FUNCTIONAL RESULTS (calculated via Gated SPECT) Stress Image LV EF (%): 72 Stress EDV (mL):79 TID: 1.13 Stress ESV (mL):22 FUNCTIONAL FINDINGS: There is normal left ventricular systolic function. IMPRESSIONS Small area of persistent reduced tracer uptake noted in apical anterolateral region which shows moderate reversibility in the absence of wall motion abnormality and prone images could be attenuation artifact Small area of decreased tracer uptake noted in basal inferior and inferolateral wall on the stress images in the absence of wall motion abnormality and prone images could be attenuation artifact clinical correlation angi oFster MD (Electronically Signed) Final Date: 08 March 2025 09:48 S
--- NOTE | 2025-03-08 15:49 | P.DS_ITS ---
Discharge Providers Date of Admission: 03/04/25 21:12 Date of Discharge: March 08, 2025 Attending Provider at Admission: Bri Gunn MD Attending Provider at Discharge: Maryjane Waggoner MD Diagnoses at Discharge Discharge Diagnosis (1) Atrial fibrillation with RVR: Status: Acute (2) UTI (urinary tract infection): Status: Acute Qualifiers: Hematuria presence: without hematuria Urinary tract infection type: site unspecified Qualified Code(s): N39.0 - Urinary tract infection, site not specified (3) Congestive heart failure (CHF): Status: Acute Qualifiers: Heart failure type: other Qualified Code(s): I50.9 - Heart failure, unspecified Reason for Visit 2 Reason for Visit: Chest pain, atrial fibrillation with RVR Hospital Course Hospital Course LEFT AMA Physical Exam Narrative: LEFT AMA Discharge Data Studies Completed and Pending Completed Studies During Hospitalization Category Date Time Status CT head wo con* [id number] Stat Cat Scan 03/04/25 20:00 Completed XR chest 1V portable [id number] Stat Exams 03/04/25 17:53 Completed NM crystal perf SPECT r/s* [id number] Routine Nuc Med 03/08/25 14:40 Completed Pending at discharge Category Date Time Status Cardiac Stress Test MIBI [Sestamibi Stress Test Request Exams 03/07/25 14:40 Ordered ] Routine Blood Culture Stat Lab 03/04/25 22:44 Results Troponin(5th) 6 hour. Timed Lab 03/08/25 16:56 Ordered CV. echo complete* [id number] Routine Ultrasound 03/06/25 07:51 Taken Radiology Impressions Chest X-Ray 03/04/25 17:53 IMPRESSION: No acute findings. Head CT 03/04/25 20:00 IMPRESSION: No acute intracranial findings. Laboratory Results WBC 4.51 10^3/uL (3.29-11.43) 03/08/25 06:33 RBC 4.43 10^6/uL (3.85-5.65) 03/08/25 06:33 Hgb 11.90 g/dL (11.27-16.99) 03/08/25 06:33 Hct 37.7 % (36-47) 03/08/25 06:33 MCV 85.1 fl (85-98) 03/08/25 06:33 MCH 26.9 pg (27-33) L 03/08/25 06:33 MCHC 31.6 g/dL (30-55) 03/08/25 06:33 RDW 14.6 % (12.1-15.1) 03/08/25 06:33 Plt Count 153 10^3/cmm (157-399) L 03/08/25 06:33 MPV 11.1 fL (7.4-10.4) H 03/08/25 06:33 Neut % (Auto) 50.1 % 03/08/25 06:33 Lymph % (Auto) 37.3 % 03/08/25 06:33 [place] % (Auto) 10.2 % 03/08/25 06:33 Eos % (Auto) 1.3 % 03/08/25 06:33 Baso % (Auto) 0.7 % 03/08/25 06:33 Neut # (Auto) 2.26 10^3/uL (1.8-7.7) 03/08/25 06:33 Lymph # (Auto) 1.7 10^3/uL (0.8-4.8) 03/08/25 06:33 [place] # (Auto) 0.5 10^3/uL (0.2-0.9) 03/08/25 06:33 Eos # (Auto) 0.1 10^3/uL (0.0-0.8) 03/08/25 06:33 Baso # (Auto) 0.0 10^3/uL (0.0-0.1) 03/08/25 06:33 Nucleated RBC % (auto) 0 % 03/08/25 06:33 Nucleated RBCs # 0.0 /100WBC 03/08/25 06:33 PT 18.20 SECONDS (12.1-14.9) H 03/04/25 19:31 INR 1.41 (0.8-1.2) H 03/04/25 19:31 APTT 37.1 SECONDS (23.9-36.7) H 03/04/25 19:31 Sodium 140 mmol/L (136-145) 03/08/25 06:33 Potassium 4.1 mmol/L (3.5-5.1) 03/08/25 06:33 Chloride 103 mmol/L (98-107) 03/08/25 06:33 Carbon Dioxide 32 mmol/L (22-29) H 03/08/25 06:33 Anion Gap 9.1 (5-19) 03/08/25 06:33 BUN 18 mg/dL (8-23) 03/08/25 06:33 Creatinine 0.6 mg/dL (0.5-0.9) 03/08/25 06:33 GFR Calculation 102.0 mL/min (90-130) 03/08/25 06:33 Glucose 94 mg/dL (65-115) 03/08/25 06:33 Calculated Osmolality 292 mOsm/kg (285-295) 03/08/25 06:33 Lactic Acid 0.9 mmol/L (0.5-2.2) 03/04/25 22:40 Calcium 8.5 mg/dL (8.5-10.5) 03/08/25 06:33 Magnesium 1.9 mg/dL (1.7-2.3) 03/07/25 05:40 Total Bilirubin 0.6 mg/dL (0.15-1.2) 03/07/25 05:40 AST 12 U/L (0-32) 03/07/25 05:40 ALT 13 U/L (0-33) 03/07/25 05:40 Alkaline Phosphatase 95 U/L (35-105) 03/07/25 05:40 Troponin T Baseline 20 ng/L (0-10) H 03/08/25 10:56 Troponin T 120 Minute 20.24 ng/L (0-10) H 03/08/25 13:05 Delta Troponin T 0.24 ABS# (0-10) 03/08/25 13:05 Troponin T Hi Sens 6Hr 8.92 ng/L (0-10) 03/04/25 22:40 Troponin T Hi Sens 6Hr Delta 0.92 ng/L (0-12) 03/04/25 22:40 NT-Pro-B Natriuret Pep 1637 pg/mL (0-125) H 03/04/25 16:00 Total Protein 7.0 g/dL (6.6-8.7) 03/07/25 05:40 Albumin 3.4 g/dL (3.5-5.2) L 03/07/25 05:40 Globulin 3.6 g/dL (1.3-4.6) 03/07/25 05:40 Urine Color [place] (Yellow) A 03/04/25 18:30 Urine Appearance Cloudy (CLEAR) A 03/04/25 18:30 Urine pH 5.5 (5-7) 03/04/25 18:30 Ur Specific [place] 1.020 (1.005-1.030) 03/04/25 18:30 Urine Protein 2+ (Negative) A 03/04/25 18:30 Urine Glucose (UA) Negative (Normal) 03/04/25 18: Urine Ketones Trace (Negative) 03/04/25 18:30 Urine Blood 3+ (Negative) A 03/04/25 18:30 Urine Nitrate Negative (Negative) 03/04/25 18: Urine Bilirubin 1+ (Negative) H 03/04/25 18: Urine Urobilinogen 1.0 mg/dL (Negative) 03/04/25 18:30 Ur Leukocyte Esterase 3+ (Negative) A 03/04/25 18:30 Urine RBC 51-100 /hpf (0-2) H 03/04/25 18:30 Urine WBC >100 /hpf (0-5) H 03/04/25 18:30 Ur Squamous Epith Cells 11-20 /hpf (0-5) H 03/04/25 18:30 Amorphous Sediment Not Reportable 03/04/25 18:30 Urine Bacteria 4+ /hpf (NONE) H 03/04/25 18:30 Hyaline Casts 6.61 /lpf 03/04/25 18:30 Vitals Last Vital Signs Temp 97.8 F 03/08/25 11:46 Pulse 108 H 03/08/25 11:46 Resp 17 03/08/25 11:46 BP 94/78 03/08/25 11:46 Pulse Ox 96 03/08/25 11:46 O2 Del Method Room Air 03/08/25 11:46 O2 Flow Rate 2 03/07/25 08:39 Discharge Plan Discharge Patient Disposition: Left Against Medical Advice Condition: Fair Prescriptions: New azithromycin 250 mg Tablet 500 mg PO DAILY Qty: 6 0RF cefdinir 300 mg capsule 300 mg PO BID Qty: 6 0RF isosorbide mononitrate 30 mg tablet extended release 24 hr 30 mg PO DAILY Qty: 30 0RF Continued albuterol sulfate 90 mcg/actuation HFA aerosol inhaler 2 inh inhalation Q4H PRN (Reason: shortness of breath or wheezing) Qty: 8.5 0RF atorvastatin 80 mg tablet 80 mg PO DAILY albuterol sulfate 1.25 mg/3 mL Solution For Nebulization 1.25 mg INHALATION QID PRN (Reason: Shortness Of Breath) tramadol 50 mg tablet 50 mg PO Q8H PRN (Reason: Pain) guaifenesin 100 mg/5 mL Liquid 200 mg PO Q6H PRN (Reason: cougn/congestion) acetaminophen 650 mg Tablet Extended Release 650 mg PO Q8H PRN (Reason: Pain) magnesium hydroxide [Milk of Magnesia] 400 mg/5 mL Suspension 30 ml PO DAILY PRN (Reason: Constipation) bisacodyl [Dulcolax (bisacodyl)] 10 mg Suppository 10 mg VT DAILY PRN (Reason: Constipation) pantoprazole 40 mg tablet,delayed release (DR/EC) 40 mg PO DAILY Fleet Enema 19-7 gram/118 mL Enema 118 ml VT DAILY PRN (Reason: Constipation) aspirin 81 mg Tablet,Chewable 81 mg PO DAILY nystatin [Nyamyc] 100,000 unit/gram powder See Rx Instructions .ROUTE .COMPLEX Rx Instructions: 1 application topically to abdominal folds twice daily as needed rof redness. oxybutynin chloride 5 mg tablet 5 mg PO BID memantine 5 mg tablet 5 mg PO DAILY metoprolol tartrate 25 mg tablet 25 mg PO BID Eliquis 5 mg tablet 5 mg PO BID Discontinued lisinopril 2.5 mg tablet 2.5 mg PO DAILY Qty: 30 0RF Referrals: [facility] [Outside] Patient Instructions: Atrial Fibrillation, Azithromycin (By mouth) (Zithromax, Zithromax Tri-[place], Zithromax..., Isosorbide Mononitrate (By mouth), Cefdinir (By mouth) (Omnicef), Heart Failure (DC), Urinary Tract Infection in Women (DC), CHF Stoplight, Opioid Safety, Pain Management Discharge Attestations Time Spent in Discharge Care*: other Quality Metrics Clinical Quality Measures [ No reported AMI, CVA or VTE this stay] Coding Level of Care Code Acute Code for [facility] Fwd Diagnoses Atrial fibrillation with RVR I48.91 Urinary tract infection without hematuria, site unspecified N39.0 Hematuria presence: without hematuria Urinary tract infection type: site unspecified Other congestive heart failure I50.9 Heart failure type: other
--- NOTE | 2025-03-08 16:37 | PC.NURSE ---
report phoned to jessica at [facility].pt has insisted to leave [facility].discharged at this time.[facility] sent transportation
== END 2025-03-08 16:38 | disposition left against medical advice (07) | DRG 309 ==
LOC: ER 21:23 → ICU 22:19 → CSU 03-05 11:37
PROVIDERS: Family Medicine; Internal Medicine Cardiovascular Disease; Admitting Provider Internal Medicine; Emergency Provider Student in an Organized Health Care Education/Training Program; Visit Provider Internal Medicine
DX: I48.91 Unspecified atrial fibrillation (principal); J44.1 Chronic obstructive pulmonary disease with (acute) exacerbation; N39.0 Urinary tract infection, site not specified; R00.1 Bradycardia, unspecified; Z53.29 Procedure and treatment not carried out because of patient's decision for other reasons; E78.5 Hyperlipidemia, unspecified; F17.200 Nicotine dependence, unspecified, uncomplicated; I11.0 Hypertensive heart disease with heart failure; I50.9 Heart failure, unspecified; Z88.0 Allergy status to penicillin; Z79.899 Other long term (current) drug therapy; Z79.01 Long term (current) use of anticoagulants; Z79.82 Long term (current) use of aspirin
CPT/HCPCS: 36415; 70450; 71045; 78452; 80048; 80053; 81001; 83605; 83735; 83880; 84484; 85025; 85610; 85730; 87040; 87077; 87086; 87186; 93005; 93017; 93306; 94640; 94664; 96365; 96366; 96372; 96375; 96376; 97116; 97161; 97166; 97530; 97535; 99285; A9500; J0283; J0696; J1644; J2060; J2270; J2405; J2785; J2919; J3490; J7030; J7512; J7614; J9999; Q0144